=== PATIENT | male | born 1960 | race Caucasian/White ===

== ENCOUNTER → 2017-09-12 08:47 | Outpatient (CLI) | payer OTHER, SELFPAY ==
[2017-09-12 11:04] LABS: Anion Gap 5 (5-15); BUN 12 mg/dL (7-18); BUN/Creat Ratio 14.1 RATIO (10-20); Calcium,Total 8.4 mg/dL (8.5-10.1); Chloride 106 mmol/L (98-107); Cholesterol 121 mg/dL (200); Creatinine, Serum 0.85 mg/dL (0.70-1.30); EST Glomerular Filtration Rate 99 mL/min (>60); Est Glom Filt Rate - Afr Amer 120 mL/min (>60); Glucose 84 mg/dL (74-106); High Density Lipoprotein 33 mg/dL; Potassium 4.2 mmol/L (3.5-5.1); Sodium Level 138 mmol/L (136-145); Triglycerides 100 mg/dL; Very Low Density Lipoprotein 20 mg/dL (5-40)
== END ==
PROVIDERS: Family Provider Family Medicine; PCP Family Medicine; Visit Provider Family Medicine
DX: I10 Essential (primary) hypertension (principal)
CPT/HCPCS: 36415; 80048; 80061

== ENCOUNTER → 2018-03-13 08:37 | Outpatient (CLI) | payer OTHER, SELFPAY ==
[2017-05-09 14:49] VITALS: BMI 32.0
[2018-03-13 10:40] LABS: BUN 12 mg/dL (7-18); Glucose 87 mg/dL (74-106)
[2018-03-13 10:41] LABS: Anion Gap 6 (5-15); BUN/Creat Ratio 13.4 RATIO (10-20); Calcium,Total 8.9 mg/dL (8.5-10.1); Chloride 106 mmol/L (98-107); Cholesterol 146 mg/dL (200); EST Glomerular Filtration Rate 93 mL/min (>60); Est Glom Filt Rate - Afr Amer 113 mL/min (>60); High Density Lipoprotein 42 mg/dL; Potassium 4.3 mmol/L (3.5-5.1); Sodium Level 141 mmol/L (136-145); Triglycerides 51 mg/dL; Very Low Density Lipoprotein 10 mg/dL (5-40)
--- OUTSIDE RECORDS SUMMARY | 2018-05-08 08:18 | XMS RPT_ITS ---
:1960 Author Organization OHIP Care Team Providers Name Role Phone Mark Gardner Attending Unavailable Mark Stephens Referring Unavailable Odessa Ahumada Attending Unavailable Mark Gardner Attending Unavailable Mark Stephens Referring Unavailable Mark Stephens Attending Unavailable Mark Stephens Primary Care Unavailable Mark Stephens Attending Unavailable Mark Stephens Primary Care Unavailable PROBLEMS PROBLEMS DATE TYPE CONDITION / CODE ATTENDING STATUS SOURCE 03/13/2018 Unknown I10 - Essential Mark Stephens Active [place] (primary) Community hypertension / Hospital I10(ICD-10) Repository 05/15/2017 Unknown I49.1 - Atrial Mark Gardner Active [place] premature Replaced By [facility] depolarization / Hospital I49.1(ICD-10) Repository PROCEDURES PROCEDURES No Procedure Records FoundRESULTS RESULTS BASIC METABOLIC Collected: 03/13/2018 Status: F Source: NORMA PROFILE (BMP) 8:52 AM [facility] REPOSITORY TYPE CODE TESTS RESULT OUT OF RANGE REFERENCE UNITS LAB L501.0100 74-106 mg/dL Normal GLU 87 Result Comment: Please note revised GLUCOSE reference range effective 2017. LAB L501.1000 7-18 mg/dL Normal BUN 12 LAB L501.1100 0.70-1.30 mg/dL Normal CREAT,SERUM 0.90 Result Comment: The validity of the calculated GFR AND GFRAA in patients over 70 years has not been determined. Clinical correlation is essential. LAB L501.1110 >60 mL/min Normal EST GFR 93 Result Comment: Non- GFR Calc LAB L501.1115 >60 mL/min Normal EST GFR - AA 113 Result Comment: GFR Calc LAB L501.1300 10-20 RATIO Normal BUN/CRE 13.4 LAB L501.2200 8.5-10.1 mg/dL CA Normal 8.9 LAB L501.5300 136-145 mmol/L NA Normal 141 LAB L501.5600 3.5-5.1 mmol/L K Normal 4.3 LAB L501.5900 98-107 mmol/L CL Normal 106 LAB L501.6100 21.0-32.0 mmol/L Normal CO2 29.0 LAB L501.6200 5-15 Normal GAP 6 Performed By: #### L500.2500, L500.4100 #### [facility] [address] [place], [address] LIPID PROFILE Collected: 03/13/2018 Status: F Source: NORMA 8:52 AM [facility] REPOSITORY TYPE CODE TESTS RESULT OUT OF RANGE REFERENCE UNITS LAB L501.4900 200 mg/dL Normal CHOL 146 Result Comment: <200 mg/dL Desirable 200-240 mg/dL Borderline >240 mg/dL High Risk LAB L501.5000 mg/dL Normal TRIG 51 Result Comment: The drugs N-Acetylcysteine and Metamizole may falsely depress this assay. Serum Triglycerides Reference Interval Normal <150 mg/dL Borderline high 150 - 199 mg/dL High 200 - 499 mg/dL Very High > or = 500 mg/dL LAB L501.6400 mg/dL Normal HDL 42 Result Comment: The drugs N-Acetylcysteine and Metamizole may falsely depress this assay. Reference Range HDL <40 mg/dL Low HDL Cholesterol HDL >or= 60 mg/dL High HDL Cholesterol LAB L501.6500 0-130 mg/dL Normal LDL 94 LAB L501.6600 5-40 mg/dL Normal VLDL 10 Performed By: #### L500.2500, L500.4100 #### [facility] [address] [place], [place], [address] BASIC METABOLIC Collected: 09/12/2017 Status: F Source: ULM PROFILE (BMP) 8:51 AM [facility] REPOSITORY TYPE CODE TESTS RESULT OUT OF RANGE REFERENCE UNITS LAB L501.0100 74-106 mg/dL Normal GLU 84 Result Comment: Please note revised GLUCOSE reference range effective 2017. LAB L501.1000 7-18 mg/dL Normal BUN 12 LAB L501.1100 0.70-1.30 mg/dL Normal CREAT,SERUM 0.85 Result Comment: The validity of the calculated GFR AND GFRAA in patients over 70 years has not been determined. Clinical correlation is essential. LAB L501.1110 >60 mL/min Normal EST GFR 99 Result Comment: Non- GFR Calc LAB L501.1115 >60 mL/min Normal EST GFR - AA 120 Result Comment: GFR Calc LAB L501.1300 10-20 RATIO Normal BUN/CRE 14.1 LAB L501.2200 8.5-10.1 mg/dL Low CA 8.4 LAB L501.5300 136-145 mmol/L NA Normal 138 LAB L501.5600 3.5-5.1 mmol/L K Normal 4.2 LAB L501.5900 98-107 mmol/L CL Normal 106 LAB L501.6100 21.0-32.0 mmol/L Normal CO2 27.0 LAB L501.6200 5-15 Normal GAP 5 Performed By: #### L500.2500, L500.4100 #### [facility] [address] [place], [address] LIPID PROFILE Collected: 09/12/2017 Status: F Source: NORMA 8:51 AM [facility] REPOSITORY TYPE CODE TESTS RESULT OUT OF RANGE REFERENCE UNITS LAB L501.4900 200 mg/dL Normal CHOL 121 Result Comment: <200 mg/dL Desirable 200-240 mg/dL Borderline >240 mg/dL High Risk LAB L501.5000 mg/dL Normal TRIG 100 Result Comment: The drugs N-Acetylcysteine and Metamizole may falsely depress this assay. Serum Triglycerides Reference Interval Normal <150 mg/dL Borderline high 150 - 199 mg/dL High 200 - 499 mg/dL Very High > or = 500 mg/dL LAB L501.6400 mg/dL Low HDL 33 Result Comment: The drugs N-Acetylcysteine and Metamizole may falsely depress this assay. Reference Range HDL <40 mg/dL Low HDL Cholesterol HDL >or= 60 mg/dL High HDL Cholesterol LAB L501.6500 0-130 mg/dL Normal LDL 68 LAB L501.6600 5-40 mg/dL Normal VLDL 20 Performed By: #### L500.2500, L500.4100 #### [facility] [address] [place], [address] CARDIOLOGY VISIT Observed: 05/09/2017 Status: F Source: NORMA REPORT 5:19 PM [facility] REPOSITORY [facility] [address] [place] [address] OFFICE VISIT Date of Service: 05/09/17 MR#: [id number] Acct: [id number] Name: PRAVEEN LYONS Rep #: [id number] : 1960 Provider: Makr Gardner MD Age/Sex: 56/M Location: [facility] [place] Status: Signed HPI 6 M FU: Details: PRAVEEN LYONS, is a 56 M who presents to the office today for for outpatient cardiovascular follow-up of his history of hypertension and PACs. He states overall since his last visit he is doing well. He is not complaining of any symptoms of chest discomfort, difficulty breathing, near syncope or syncope. He has noted no palpitations. He brings with him his blood pressure recordings. For the most part his blood pressures appear to be under good control. He had a rare isolated mildly elevated systolic blood pressure of 1 44 mmHg. Intake Vital Signs05/09/17 Height 5 ft 10 in 05/09/17 Weight: 223 lb 7 oz 05/09/17 Body Mass Index (BMI) 32.0 05/09/17 Blood Pressure 128/74 Intake Visit Reasons: 6 M FU Allergies No Known Allergies Allergy (Verified 05/09/17 14:49) Medications Amlodipine Besylate [Norvasc] 2.5 mg PO DAILY 10/26/16 [History Confirmed 05/09/17] Aspirin [Aspir-Low] 81 mg PO DAILY 10/26/16 [History Confirmed 05/09/17] Lisinopril 20 mg PO BID 10/26/16 [History Confirmed 05/09/17] Multivitamin [Multiple Vitamins] 1 ea PO DAILY 10/26/16 [History Confirmed 05/09/17] [place]-3 Fatty Acids [Fish Oil] 360 mg PO DAILY 10/26/16 [History Confirmed 05/09/17] metoprolol tartrate 25 mg tablet 25 mg PO BID 05/06/17 [History Confirmed 05/09/17] Nurse's Note: Patient reports that he has been well. [facility] Medical History Hypertension (Chronic) Premature atrial contractions (Acute) Family history of hypertension (Acute) Nicotine dependence, chewing tobacco, uncomplicated (Acute) Family History Grandfather CAD (coronary artery disease) Hypertension Grandmother Diabetes Father Hypertension Social History alcohol intake: current details: occasioinal substance use type: does not use ROS Const Const: Negative for fatigue, weakness, weight gain, weight loss, frequent falls or excessive sweating Eyes Eyes: Negative for change in vision, blurry vision or transient loss of vision ENT ENT: Negative for dizziness, Negative for balance problems Cardio Chest Pain: No Palpitations: Positive for No Edema: None Muscle aches with walking: None Resp Respiratory: Negative for SOB with activity or SOB at rest GI GI: Negative vomiting or vomiting blood/hematemesis : Negative for hematuria Musc Musc: Negative for balance problems, muscle aches/ myalgia, muscle weakness or joint pain Skin Skin: Negative non-healing lesions or rash Neuro Neuro: Negative for weakness, Negative for blurry vision, Negative for dizziness, Negative for lightheadedness, Negative for frequent falls, Negative for orthostatic symptoms Demario Hematologic/Lymphatic: Negative for easy bleeding Endo Endo: Negative for fatigue or excessive sweating Psych Psych: Negative for anxiety or depression Allergy Allergy/Immunology: Negative for hives, Negative for rash Cardiology Exam Const Appearance: cooperative, healthy appearing, comfortable, no acute distress, well developed and well groomed Nutritional Appearance: average body habitus, well nourished and overweight Orientation: alert, awake and oriented x3 Head Head: normal to inspection, normocephalic and atraumatic Ears: hearing grossly normal bilaterally Nose: external nose normal Face and Sinus: face symmetric Mouth: oral mucosae normal Teeth and gingiva: dentition normal Eyes General: appearance normal, both eyes and all related structures Eyelids: eyelids normal Conjunctivae: conjunctivae normal Pupils: PERRL EOM: EOM intact bilaterally Neck Neck: normal visual inspection and full ROM Carotids: normal carotid upstroke Chest Chest inspection: normal inspection of the chest and symmetric chest movement Auscultation: Bilateral: Clear to Auscultation Cardio Palpation: normal PMI Rate: regular rate Rhythm: regular rhythm Heart sounds: S1 normal and S2 normal GI GI: normal to inspection, soft, no hepatosplenomegaly and bowel sounds present Neuro General: alert, awake and oriented x3 Skin Skin: no rashes or lesions noted Extremities Pulses: Normal: Right Femoral Pulse, Left Femoral Pulse, Right Radial Pulse, Left Radial Pulse Lower Extremity Edema: None: Bilateral Psych Psychological: normal affect Assessment AND Plan 1. Hypertension I10 Plan At the present time he appears to be doing well. He will continue his current medical management and follow-up. 2. Premature atrial beat I49.1 Plan He has had no acute symptoms of underlying ectopy or dysrhythmias. He will be reassessed as needed going forward. Plan Detail Additional Comments Otherwise she will be scheduled for an outpatient visit approximately 1 year unless needed sooner. Thank you for allowing me to participate in the care of your patient. Please don't hesitate to call if any issues arise. This note was generated using a voice recognition system and there may be incorrect words, spelling or punctuation that were not noted when reviewing the office note prior to saving. Follow Up 1 Year (PFM) Coding Level of Care Code Off vis,est,level 3 Diagnoses Hypertension I10 Premature atrial beat I49.1 05/09/17 1719 <Electronically signed by Mark Gardner MD> Date Mark Gardner MD Cosigner Signature: Date (if applicable) CC: Mark Stephens MD ALLERGIES ALLERGIES DATE TYPE / CODE NAME / CODE REACTION SEVERITY SOURCE 05/09/2017 Drug No Known Unknown [place] Replaced By [facility] Allergy/4160 Allergies/F00 Hospital 94752(SNOMED [id number](RXNOR Repository CT) M) ENCOUNTERS ENCOUNTERS ADMIT/DISCHARGE ACCOUNT ADMITTING ENCOUNTER LOCATION SOURCE NUMBER CLASS 03/13/2018 [id number] Ambulatory [place] Norma 0 [facility] ing:MFPLAB Repository 09/12/2017 [id number] Ambulatory [place] Norma 5 [facility] ing:MFPLAB Repository 05/09/2017/ [id number] Ambulatory BMSBuilding:B [place] 8 8 [facility] Repository 05/06/2017 [id number] Ambulatory BMSBuilding:B [place] 2 [facility] Repository 04/25/2017 [id number] Ambulatory BMSBuilding:B [place] 8 [facility] Repository PAYERS PAYERS ENCOUNTER GUARANTOR PAYER SUBSCRIBER SOURCE 03/13/2018 PRAVEEN Vera Primary PRAVEEN Waddell [id number] Insurance:AULTCAREPol NERISSAERB: [facility] Number: [id number] [id number] Repository [address]Qdv: 330 Date:[phone] (SS) [address], [place] [phone]: 03/13/2018 Secondary NOT GIVENUNK [place] Insurance:SELF PAY [facility] Number: Effective Repository Date:2018-03-13 09/12/2017 PRAVEEN Vera Primary PRAVEEN Waddell [id number] Insurance:AULTCAREPol SNYDERDOB: [facility] icy Number: [id number] [id number] Repository [address]Gzv: ([phone]) Date:0773-03-80PM [phone] (HP) [address] [place] [phone]: 09/12/2017 Secondary NOT GIVENUNK [place] Insurance:SELF PAY [facility] Number: Effective Repository Date:2017-09-12 05/09/2017 PRAVEEN Vera Primary PRAVEEN Waddell [id number] Insurance:AULTCAREPol SNYDERDOB: [facility] icy Number: [id number] [id number] Repository [address]Rhg: ([phone]) Date:8004-49-59OW [phone] () [address] [place] [phone]: 05/09/2017 Secondary NOT GIVENUNK [place] Insurance:SELF PAY [facility] Number: Effective Repository Date:2017-04-22 05/06/2017 Praveen Vera Primary Praveen Waddell [id number] Insurance:AULTCAREPol SnyderDOB: [facility] icy Number: [id number] [id number] Repository [address]Hyj: Date:0301-55-01ED [phone]~[address] [place] [address] 6 (HP) [phone]: 05/06/2017 Secondary NOT GIVENUNK Norma Insurance:SELF PAY [facility] Number: Effective Repository Date:2017-05-06 04/25/2017 Praveen Vera Primary Praveen Waddell [id number] Insurance:AULTCAREPol SnyderDOB: [facility] icy Number: [id number] [id number] Repository [address]Cao: Date:0988-36-38UO [phone] [address], [place] 6 (SN) [phone]: 04/25/2017 Secondary NOT GIVENUNK [place] Insurance:SELF PAY [facility]: Effective Repository Date:2017-03-23
== END ==
PROVIDERS: Family Provider Family Medicine; PCP Family Medicine; Visit Provider Family Medicine
DX: I10 Essential (primary) hypertension (principal)
CPT/HCPCS: 36415; 80048; 80061

== ENCOUNTER → 2018-09-11 | Outpatient (CLI) | payer OTHER, SELFPAY ==
[2018-05-15 14:55] VITALS: BMI 31.5
[2018-09-11 10:46] LABS: Anion Gap 4 (5-15); BUN 10 mg/dL (7-18); BUN/Creat Ratio 10.8 RATIO (10-20); Calcium,Total 8.6 mg/dL (8.5-10.1); Chloride 106 mmol/L (98-107); Creatinine, Serum 0.93 mg/dL (0.70-1.30); EST Glomerular Filtration Rate 89 mL/min (>60); Est Glom Filt Rate - Afr Amer 108 mL/min (>60); Glucose 87 mg/dL (74-106); Potassium 4.5 mmol/L (3.5-5.1); Sodium Level 138 mmol/L (136-145)
== END | disposition home or self-care (01) ==
LOC: MFPLAB 08:37
PROVIDERS: Family Provider Family Medicine; PCP Family Medicine; Referring Provider Family Medicine; Visit Provider Family Medicine
DX: I10 Essential (primary) hypertension (principal); R53.83 Other fatigue
CPT/HCPCS: 36415; 80048; 84403

== ENCOUNTER → 2019-09-03 14:59 | Outpatient (CLI) | payer OTHER, SELFPAY ==
[2019-05-14 10:09] VITALS: BMI 31.8
[2019-09-03 17:48] LABS: Anion Gap 3 (5-15); BUN 10 mg/dL (7-18); BUN/Creat Ratio 11.1 RATIO (10-20); Calcium,Total 8.7 mg/dL (8.5-10.1); Chloride 100 mmol/L (98-107); Cholesterol 138 mg/dL (200); EST Glomerular Filtration Rate 92 mL/min (>60); Est Glom Filt Rate - Afr Amer 112 mL/min (>60); Glucose 77 mg/dL (74-106); High Density Lipoprotein 41 mg/dL; PSA,Total - Annual Screen 0.58 ng/mL (0.00-4.00); Potassium 3.8 mmol/L (3.5-5.1); Sodium Level 133 mmol/L (136-145); Triglycerides 74 mg/dL; Very Low Density Lipoprotein 15 mg/dL (5-40)
== END ==
PROVIDERS: PCP Family Medicine; Referring Provider Family Medicine; Visit Provider Family Medicine
DX: Z00.00 Encounter for general adult medical examination without abnormal findings (principal); I10 Essential (primary) hypertension
CPT/HCPCS: 36415; 80048; 80061; 84153; 84403; G0103

== ENCOUNTER → 2022-01-31 | Outpatient (CLI) | payer OTHER, SELFPAY ==
--- NOTE | 2022-01-31 09:01 | RAD_ITS ---
STUDY: X-RAY - LEFT KNEE REASON FOR EXAM: Male, 61 years old. PAIN TECHNIQUE: 3 view(s) of the knee. COMPARISON: None. FINDINGS: Normal visualized distal femur. Normal visualized proximal tibia and fibula. Normal proximal tibiofibular articulation. There is mild degenerative arthrosis of the medial femorotibial compartment. Normal lateral femorotibial compartment. There is mild degenerative arthrosis of the patellofemoral articulation. The soft tissue structures are unremarkable. RAD/Knee 3 Views IMPRESSION: Degenerative arthrosis. Electronically Signed: Fabricio Rodriguez MD at 9:45 EDT ,
[2022-01-31 11:10] LABS: Anion Gap 4 (5-15); BUN 14 mg/dL (7-18); BUN/Creat Ratio 14.3 RATIO (10-20); Calcium,Total 9.2 mg/dL (8.5-10.1); Chloride 107 mmol/L (98-107); Cholesterol 147 mg/dL (200); Creatinine, Serum 0.98 mg/dL (0.70-1.30); EST Glomerular Filtration Rate 83 mL/min (>60); Est Glom Filt Rate - Afr Amer 100 mL/min (>60); Glucose 89 mg/dL (74-106); High Density Lipoprotein 45 mg/dL; PSA,Total - Annual Screen 0.77 ng/mL (0.00-4.00); Potassium 4.3 mmol/L (3.5-5.1); Sodium Level 140 mmol/L (136-145); Thyroid Stim Hormone (TSH) 0.55 uIU/mL (0.358-3.74); Triglycerides 41 mg/dL; Very Low Density Lipoprotein 8 mg/dL (5-40)
== END | disposition home or self-care (01) ==
PROVIDERS: PCP Family Medicine; Referring Provider Family Medicine; Visit Provider Family Medicine
DX: Z00.00 Encounter for general adult medical examination without abnormal findings (principal); M25.562 Pain in left knee
CPT/HCPCS: 36415; 73562; 80048; 80061; 82306; 84153; 84443; G0103

== ENCOUNTER → 2022-05-24 | Outpatient (CLI) | payer OTHER, SELFPAY | END | disposition home or self-care (01) | LOC: SL 12:18 | PROVIDERS: PCP Family Medicine; Referring Provider Nurse Practitioner Acute Care; Visit Provider Nurse Practitioner Acute Care | DX: G47.10 Hypersomnia, unspecified (principal) | CPT/HCPCS: 95806 ==

== ENCOUNTER → 2022-07-12 | Outpatient (CLI) | payer OTHER, SELFPAY | END | disposition home or self-care (01) | LOC: SL 12:13 | PROVIDERS: PCP Family Medicine; Visit Provider Nurse Practitioner Acute Care | DX: Z00.00 Encounter for general adult medical examination without abnormal findings (principal) ==

== ENCOUNTER → 2024-01-23 | Outpatient (CLI) | payer OTHER, SELFPAY ==
[2024-01-23 12:48] LABS: Absolute Lymphocyte Count 1.26 X10^3/uL (0.83-4.51); Absolute Neutrophil Count 3.4 X10^3/uL (2.0-7.7); Basophil# 0.05 X10^3/uL; Basophil% 0.9 % (0-1); Eosinophil# 0.24 X10^3/uL; Eosinophils% 4.3 % (0-5); Hematocrit 41.3 % (40-54); Hemoglobin 13.7 g/dL (13.0-16.5); Lymphocyte # 1.26 X10^3/ul (0.83-4.51); Lymphocyte % 22.7 % (19-41); Mean Corp Hgb Conc 33.2 g/dL (32-36); Mean Corpuscular Volume 93.4 fL (80-94); Mean Platelet Vol. 10.8 fl (6.2-12.0); Monocyte# 0.56 X10^3/uL; Monocyte% 10.1 % (0-10); NRBC Flagged by Analyzer 0 % (0-5); Neutrophil # 3.42 X10^3/uL (2.7-7.7); Neutrophil % 61.8 % (47-70); Platelet Count 244 K/mm3 (150-450); RBC Distribution Width CV 12.8 % (11.6-14.6); RBC Distribution Width SD 43.9 fl (35.1-43.9); Red Blood Count 4.42 M/mm3 (4.6-6.2); White Blood Count 5.5 K/mm3 (4.4-11.0)
[2024-01-23 13:23] LABS: ALB/GLOB Ratio 1.1 RATIO (0.9-2.4); AST(SGOT) 17 U/L (15-37); Alanine Aminotransfer ALT/SGPT 25 U/L (16-61); Albumin, Serum 3.5 g/dL (3.2-5.0); Alkaline Phosphatase 87 U/L (45-117); Anion Gap 3 (5-15); BUN 13 mg/dL (7-18); BUN/Creat Ratio 14.1 RATIO (10-20); Chloride 107 mmol/L (98-107); Cholesterol 148 mg/dL (200); Creatinine, Serum 0.92 mg/dL (0.70-1.30); EST Glomerular Filtration Rate 88 mL/min (>60); Est Glom Filt Rate - Afr Amer 107 mL/min (>60); Globulin 3.3 g/dL (2.2-4.2); Glucose 85 mg/dL (74-106); High Density Lipoprotein 41 mg/dL; PSA,Total - Annual Screen 0.76 ng/mL (0.00-4.00); Potassium 4.4 mmol/L (3.5-5.1); Protein, Total 6.8 g/dL (6.4-8.2); Sodium Level 138 mmol/L (136-145); Thyroid Stim Hormone (TSH) 0.471 uIU/mL (0.358-3.740); Triglycerides 62 mg/dL; Very Low Density Lipoprotein 12 mg/dL (5-40)
[2024-01-23 13:33] LABS: Microalbumin,Random Urine 6.8 mg/L (NO RANGE EST.)
[2024-01-23 13:35] LABS: Hemoglobin A1c 5.2 % (3.8-5.6)
== END | disposition home or self-care (01) ==
LOC: VSLAB 08:46
PROVIDERS: PCP Family Medicine
DX: I10 Essential (primary) hypertension (principal); Z13.228 Encounter for screening for other metabolic disorders; Z13.6 Encounter for screening for cardiovascular disorders; Z12.5 Encounter for screening for malignant neoplasm of prostate
CPT/HCPCS: 36415; 80053; 80061; 82043; 83036; 84153; 84443; 85025; G0103

== ENCOUNTER → 2024-02-27 | Outpatient (CLI) | payer OTHER, SELFPAY ==
[2024-02-27 10:39] LABS: Thyroid Stim Hormone (TSH) 0.503 uIU/mL (0.358-3.740)
== END | disposition home or self-care (01) ==
LOC: LAB 09:45
PROVIDERS: PCP Family Medicine; Referring Provider Internal Medicine Cardiovascular Disease; Visit Provider Internal Medicine Cardiovascular Disease
DX: R00.1 Bradycardia, unspecified (principal); I10 Essential (primary) hypertension; M79.89 Other specified soft tissue disorders
CPT/HCPCS: 36415; 84443

== ENCOUNTER → 2024-04-09 | Outpatient (CLI) | payer OTHER, SELFPAY ==
[2024-04-09 16:28] LABS: Anion Gap 5 (5-15); BUN 25 mg/dL (7-18); BUN/Creat Ratio 24.8 RATIO (10-20); Calcium,Total 9.1 mg/dL (8.5-10.1); Chloride 104 mmol/L (98-107); Creatinine, Serum 1.01 mg/dL (0.70-1.30); EST Glomerular Filtration Rate 79 mL/min (>60); Est Glom Filt Rate - Afr Amer 96 mL/min (>60); Glucose 101 mg/dL (74-106); Potassium 4.1 mmol/L (3.5-5.1); Sodium Level 137 mmol/L (136-145)
== END | disposition home or self-care (01) ==
LOC: LAB 14:42
PROVIDERS: PCP Family Medicine; Referring Provider Internal Medicine Cardiovascular Disease; Visit Provider Internal Medicine Cardiovascular Disease
DX: I10 Essential (primary) hypertension (principal); R00.1 Bradycardia, unspecified
CPT/HCPCS: 36415; 80048

== ENCOUNTER → 2024-10-30 | Outpatient (CLI) | payer OTHER, SELFPAY ==
--- OUTSIDE RECORDS SUMMARY | 2024-10-30 09:22 | XMS RPT_ITS | CCD ---
Author Organization [facility] Care Team Providers Care Logistics Supervisor Name Role Phone Maty Campbell Unavailable Unavailable Maty Campbell Unavailable Unavailable Ronnie Castillo Unavailable Unavailable Anatoly UNDERWOOD, Roman Hammond Unavailable Megan Cox Unavailable Unavailable Dr. Mark Stephens Primary Care Provider [phone] Dr. Mark Stephens Referring Provider Vikas STOGY MAKER, STOGY MAKER-C Yuki Attending Provider Dr. Mark Stephens Primary Care Provider Dr. Mark Stephens Referring Provider Vikas STOGY MAKER, STOGY MAKER-C Yuki Attending Provider Eddie Sanchez DO Primary Care Provider Eddie Sanchez DO Primary Care Provider EDDIE SANCHEZ Primary Care UnavailJOE Faustin Referring Unavailable JOE PEREZ Attending Unavailable EDDIE SANCHEZ Primary Care Unavailabl e MINO GARCIA Referring Unavailable JOE PEREZ Attending Unavailable GOVIND KWON Attending Unavailable Mark Stephens Primary Care Unavailable Arnaud, Brady Attending Unavailable Mark Stephens Referring Unavailable Laura [facility], Barbra Primary Care Unavailable Arnaud, Brady Referring Unavailable Laura VS, Barbra Primary Care Unavailable Arnaud, Brady Attending Unavailable Arnaud, Brady Attending Unavailable Arnaud, Brady Referring Unavailable Laura [facility], Barbra Primary Care Unavailable Arnaud, Brady Attending Unavailable Laura [facility], Barbra Primary Care Unavailable Barbra Martin Referring Unavailable Medications Current Medications Medication Drug Class(es) Dates Sig (Normalized) Sig (Original) amLODIPine 2.5 mg oral tablet (20 sources) Dihydropyridine Calcium Channel Jyotsna Start: 01-12-2024 take 1 tablet by mouth once amLODIPine (NORVASC) 2.5 mg tablet Take 1 tablet by mouth every afternoon. 01/12/2024 Active Start: 10-26-2016 End: 08-15-2021 take 2.5 mg by mouth once daily Amlodipine Discontinue d 2.5 MG PO DAILY 90 August 16, 2020 12:15pm August 15, 2021 8:44am Start: 09-20-2016 take 1 tablet by catherine th once daily NORVASC 2.5 MG TABS One tablet by mouth daily AMLODIPINE BESYLATE [id number] JHONY SnyderC aspirin 81 mg delayed release oral tablet (13 sources) Nonsteroidal Anti-inflammatory Drug Start: 10-26-2016 take 81 mg by mouth once daily Aspirin Active 81 MG PO DAILY October 26, 2016 12:00am Start: 06-23-2015 take 1 tablet by catherine th once daily ASPIRIN EC 81 MG TBEC One tablet by mouth daily ASPIRIN [id number] Odessa Ahumada RN Start: 06-23-2015 take 1 tablet by catherine th once daily ASPIR-81 81 MG TBEC One tablet by mouth daily ASPIRIN [id number] Mark Gardner MD ibuprofen 200 mg oral tablet (2 sources) Nonsteroidal Anti-inflammatory Drug Start: 05-03-2022 take 1 tablet by mouth every six hours Ibuprofen (Advil) 200 mg tablet Active 200 MG PO EVERY 6 HOURS May 03, 2022 1:00am lisinopril 20 mg oral tablet (20 sources) Angiotensin Converting Enzyme Inhibitor Start: 10-24-2023 take 1 tablet by mouth once daily lisinopril (ZESTRIL) 20 mg tablet Take 20 mg by mouth once daily. 10/24/2023 Active Start: 10-26-2016 End: 08-29-2021 take 20 mg by mouth twice daily Lisinopril Discontinue d 20 MG PO TWICE A DAY 180 October 12, 2020 8:55am August 29, 2021 2:08pm Start: 06-20-2015 take 1 tablet by catherine th once daily LISINOPRIL 10 MG TABS One tablet by mouth daily LISINOPRIL [id number] Mariza Durham RN Start: 06-20-2015 take 1 tablet by catherine th twice daily LISINOPRIL 10 MG TABS One tablet by mouth twice daily LISINOPRIL [id number] Beti Kenyon RN Start: 06-20-2015 take 1 tablet by catherine th twice daily LISINOPRIL 20 MG TABS One tablet by mouth twice daily LISINOPRIL [id number] Odessa Bragg PA-C metoprolol tartrate 50 mg oral tablet (20 sources) beta-Adrenergic Jyotsna Start: 10-24-2023 take 1 tablet by mouth twice daily metoprolol tartrate, short acting, (LOPRESSOR) 50 mg tablet Take 50 mg by mouth two times a day. 10/24/2023 Active Start: 05-15-2018 take 50 mg by mouth twice arsalan y Metoprolol Tartrate Active 50 MG PO TWICE A DAY May 15, 2018 1:00am Start: 05-06-2017 End: 05-15-2018 take 25 mg by mouth twice daily Metoprolol Tartrate Di scontinued 25 MG PO TWICE A DAY May 06, 2017 1:00am May 15, 2018 3:56pm Start: 10-26-2016 End: 05-06-2017 take 50 mg by mouth twice daily Metoprolol Tartrate Di scontinued 50 MG PO TWICE A DAY October 26, 2016 12:00am May 06, 2017 9:20am Start: 03-21-2016 take 1 tablet by catherine th twice daily METOPROLOL TARTRATE 25 MG TABS 1 tablet by mouth twice daily METOPROLOL TARTRATE [id number] Odessa Bragg PA-C Start: 03-21-2016 take 0.5 tablet by m out twice daily METOPROLOL TARTRATE 25 MG TABS 1/2 tablet by mouth twice daily METOPROLOL TARTRATE [id number] Mark Gardner MD Multivitamin preparation (3 sources) Start: 10-26-2016 Multivitamin A ctive 1 EACH PO DAILY October 25, 2016 11:00pm Start: 10-26-2016 Multivitamin A ctive 1 EACH PO DAILY October 26, 2016 12:00am [place] 4-Gby-Ffy-Fish Oil (3 sources) Start: 10-26-2016 take 360 mg by mouth once daily [place] 2-Kbj-Vpz-Fish Oil Active 360 MG PO DAILY October 25, 2016 11:00pm Start: 10-26-2016 take 360 mg by mouth once daily [place] 6-Zqt-Rmm-Fish Oil Active 360 MG PO DAILY October 26, 2016 12:00am phenylephrine hydrochloride 25 mg/ml ophthalmic solution (1 source) alpha-1 Adrenergic Agonist Start: 01-29-2024 End: 01-29-2024 PHENYLephrine 2.5 % 1 Drop (AK-DILATE, ARLETTE-SYNEPHRINE) proparacaine hydrochloride 5 mg/ml ophthalmic solution (1 source) Local Anesthetic Start: 01-29-2024 End: 01-29-2024 proparacaine 0.5 % 1 Drop (ALCAINE) tropicamide 10 mg/ml ophthalmic solution (1 source) Anticholinergic Start: 01-29-2024 End: 01-29-2024 tropicamide 1 % 1 Drop (MYDRIACYL) Completed/Discontinued Medications Medication Drug Class(es) Dates Sig (Normalized) Sig (Original) fish oil (5 sources) Start: 6 take 1 tablet by mouth once daily FISH OIL CAPS One tablet by mouth daily OMEGA-3 FATTY ACIDS CAPS [id number] Mark Gardner MD hydroCHLOROthiazide 25 mg oral tablet (14 sources) Thiazide Diuretic Start: 6 End: 7 take 1 tablet by mouth once daily HYDROCHLOROTHIAZIDE 25 MG TABS One tablet by mouth daily HYDROCHLOROTHIAZIDE [id number] Odessa Bragg PA-C Start: 06-20-2015 take 1 tablet by catherine th once daily HYDROCHLOROTHIAZIDE 12.5 MG TABS One tablet by mouth daily HYDROCHLOROTHIAZIDE [id number] Mariza Durham RN MULTIPLE VITAMIN (5 sources) Start: 06-20-2015 take 1 tablet by mouth once daily MULTIVITAMINS TABS One tablet by mouth daily MULTIPLE VITAMIN Mariza Durham RN oxybutynin chloride 5 mg oral tablet (7 sources) Cholinergic Muscarinic Antagonist Start: 05-06-2017 End: 05-09-2017 take 5 mg by mouth twice daily Oxybutynin Chloride Discontinued 5 MG PO TWICE A DAY May 06, 2017 1:00am May 09, 2017 3:50pm Start: 09-20-2016 take 1 tablet by catherine twice daily OXYBUTYNIN CHLORIDE 5 MG TABS 1 tab po twice daily OXYBUTYNIN CHLORIDE [id number] Odessa Bragg PA-C Problems Active Problems Problem Classification Problem Date Documented Da te Episodic/Chronic Blindness and vision defects (3 sources) Bilateral regular astigmatism; Translations: [Regular astigmatism, bilateral] 01-29-2024 Episodic Cardiac dysrhythmias (9 sources) Premature atrial contraction; Translations: [Atrial premature depolarization] Onset: 06-23-2015 06-23-2015 Chronic Cardiac dysrhythmias (3 sources) Bradycardia; Translations: [Bradycardia, unspecified] Onset: 03-23-2024 01-29-2024 Episodic Cataract (4 sources) Senile combined form cataract of left eye; Translations: [Combined forms of age-related cataract, left eye] 01-29-2024 Chronic Essential hypertension (11 sources) Hypertensive disorder; Translations: [Essential hypertension] Onset: 06-20-2015 06-20-2015 Chronic Other nutritional; endocrine; and metabolic disorders (9 sources) Body mass index (BMI) 32.0-32.9, adult; Translations: [Body mass index (BMI) 31.0-31.9, adult] Onset: 06-23-2015 07-28-2015 Chronic Other nutritional; endocrine; and metabolic disorders (1 source) Body mass index (BMI) 31.0-31.9, adult; Translations: [Body mass index (BMI) 31.0-31.9, adult] Onset: 06-23-2015 06-23-2015 Chronic Other nutritional; endocrine; and metabolic disorders (1 source) Body mass index 30+ - obesity; Translations: [Body mass index (BMI) 33.0-33.9, adult] 06-14-2022 Chronic Other nutritional; endocrine; and metabolic disorders (1 source) Body mass index (BMI) 33.0-33.9, adult; Translations: [Body Mass Index 33.0-33.9, adult] 06-14-2022 Chronic Other screening for suspected conditions (not mental disorders or infectious disease) (3 sources) Patient encounter status; Translations: [Encounter for screening for malignant neoplasm of colon] 2016 Episodic Residual codes; unclassified (2 sources) Daytime hypersomnia; Translations: [Hypersomnia, unspecified] 05-03-2022 Chronic Residual codes; unclassified (2 sources) Hypersomnia, unspecified; Translations: [Hypersomnia, unspecified] 05-03-2022 Chronic Residual codes; unclassified (1 source) Obstructive sleep apnea syndrome; Translations: [Obstructive sleep apnea (adult) (pediatric)] 06-14-2022 Chronic Residual codes; unclassified (2 sources) Obstructive sleep apnea (adult) (pediatric); Translations: [Obstructive sleep apnea (adult)(pediatric)] Onset: 02-27-2024 06-14-2022 Chronic Retinal detachments; defects; vascular occlusion; and retinopathy (2 sources) Epiretinal membrane of right eye; Translations: [Puckering of macula, right eye] 01-29-2024 Chronic Screening or history of mental health and substance abuse (5 sources) Nicotine dependence, chewing tobacco, uncomplicated; Translations: [Nicotine dependence, chewing tobacco, uncomplicated] Onset: 06-20-2015 06-20-2015 Chronic Unclassified (1 source) Screening for malignant neoplasm of colon ; Translations: [Encounter for screening for malignant neoplasm of colon] Onset: 09-27-2016 09-27-2016 Viral infection (3 sources) Disease caused by 2019-nCoV; Translations: [COVID-19] 04-11-2021 Episodic Past or Other Problems Problem Classification Problem Date Documented Da te Episodic/Chronic Unclassified (5 sources) FH: Hypertension; Translations: [Family history of ischemic heart disease and other diseases of the circulatory system] 06-20-2015 Episodic Results Test Name Value Interpretation Reference Range Facility Basic Metabolic Profile (BMP )on 04-09-2024 BUN/CRE 24.8 RATIO High 10-20 [facility] Comment on above: Performed By: #### L 500.2500 #### [facility] [address] [place], [address] CA,Total 9.1 mg/dL Normal 8.5-10.1 [facility] Comment on above: Performed By: #### L 500.2500 #### [facility] [address] [place], [address] Chloride [Moles/Vol] 104 mmol/L Normal 98-107 [facility] Comment on above: Performed By: #### L 500.2500 #### [facility] [address] [place], [address] CO2 [Moles/Vol] 29.0 mmol/L Normal 21.0-32.0 [facility] Comment on above: Performed By: #### L 500.2500 #### [facility] [address] [place], [address] Creatinine [Mass/Vol] 1.01 mg/dL Normal 0.70-1.30 [facility] Comment on above: Result Comment: The validity of the calculated GFR GFRAA in patients over 70 years has not been determined. Clinical correlation is essential. Performed By: #### L 500.2500 #### [facility] [address] [place], [address] EST GFR - AA 96 mL/min Normal >60 [facility] Comment on above: Result Comment: Afri can Grenadian GFR Calc Performed By: #### L 500.2500 #### [facility] [address] [place], [address] GAP 5 Normal 5-15 [facility] Comment on above: Performed By: #### L 500.2500 #### [facility] [address] [place], [address] GFR/1.73 sq M.predicted among non-blacks MDRD (S/P/Bld) [Vol rate/Area] 79 mL/min/{1.73_m2} Normal >60 [facility] Comment on above: Result Comment: Non- GFR Calc Performed By: #### L 500.2500 #### [facility] [address] [place], [address] Glucose [Mass/Vol] 101 mg/dL Normal 74-106 [facility] Comment on above: Result Comment: Fast ing Glucose result from 100 to 125 mg/dL suggests IMPAIRED HOMEOSTASIS per A.D.A. criteria. Performed By: #### L 500.2500 #### [facility] [address] [place], [address] Potassium [Moles/Vol] 4.1 mmol/L Normal 3.5-5.1 [facility] Comment on above: Performed By: #### L 500.2500 #### [facility] [address] [place], [address] Sodium [Moles/Vol] 137 mmol/L Normal 136-145 [facility] Comment on above: Performed By: #### L 500.2500 #### [facility] [address] [place], [address] Urea nitrogen [Mass/Vol] 25 mg/dL High 7-18 [facility] Comment on above: Performed By: #### L 500.2500 #### [facility] [address] [place], [address] CORNEAL TOPOGRAPHY ATLAS OU (BOTH EYES)on 03-25-[address] [facility] Radiology Study observation (narrative) [facility] IOL BIOMETRY W/ IOL CALC OU (BOTH EYES)on 03-25-[address] [facility] Radiology Study observation (narrative) [facility] Office Visit Reporton 2023 Office Visit Report [facility] [address] [place] [address] OFFICE VISIT Date of Service: 03/19/24 MR#: [id number] Acct: [id number] Patient: PRAVEEN LYONS Rep #: [id number] : 1960 Provider: Dr. Brady Lares MD Age/Sex: 63/M Location[place] [facility] Status: Signed Intake Vital Signs 11/14/24 08:04 03/19/24 13:15 Height 5 ft 10 in Weight: 236 lb BMI 33.8 BP 132/78 H 141/80 H Blood Pressure Location Lt brachial Lt brachial Position Sitting Sitting Respiration 16 16 Pulse 46 L 62 Pulse Source NIBP Monitor Intake Visit Reasons: 2 WK BP + HR Check Allergies No Known Allergies Allergy (Verified 02/27/24 09:00) Nursing Note Patient in office for a BP/HR check after medication changes at last OV. Results of BP/HR check reviewed with Dr. Lares and patient instructed to start HCTZ 12.5mg daily and have BMP drawn in one week. Patient verbalizes understanding. Assessment and Plan Assessment and Plan Orders: Orders Basic Metabolic Profile (BMP) 04/09/24 I10 - Essential (primary) hypertension, R00.1 - Bradycardia, unspecified Medications: New hydrochlorothiazide 12.5 mg PO QAM 90 tabs 3RF 05/14/24 1127 Date Brady Lares MD Cosign Signature: Date (if applicable) CC: Normal [facility] 12 Lead EKG performed by [facility] on 02-27-2024 12 Lead EKG performed by [facility] [address] [place] [address] 12 Lead EKG performed by [facility] 02/27/24 0809 MR#: [id number] Acct: [id number] Name: PRAVEEN LYONS Rep #: [id number] : 1960 63 From: Brady Lares MD Attending Dr: Dr. Brady Lares MD Status: DEP AMB Ordering Dr: Brady Lares MD Date: 02/27/24 Location: [facility] Sex: M C Admitted: [facility]/12 Lead EKG performed by [facility] ECG Report Interpretation ---Marked sinus Bradycardia BORDERLINE RHYTHMElectronically signed on 05/11/2024 at 11:[address] Brady Lares [employer] Version [id number] 05/11/24 1115 Date Brady Lares MD CC: Barbra Sanchez DO Date Dictated: 02/27/24808 Date Transcribed: 02/27/24808 Tire Shop Mechanic: JESSICA Signed Normal [facility] Cardiology Visit Reporton Cardiology Visit Report [facility] [address] [place] [address] OFFICE VISIT Date of Service: 02/27/24 MR#: [id number] Acct: [id number] Name: PRAVEEN LYONS Rep #: [id number] : 1960 Provider: Dr. Brady Lares MD Age/Sex: 63/M Location: [facility] Status: Signed HPI HPI History of Present Illness Details: This gentleman has history of frequent PACs and hypertension. 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 He was noted to have low heart rate. Subsequently he is presenting to us for evaluation. Patient has been on metoprolol 50 mg twice daily. He denies any lightheadedness or dizziness. No fatigue or tiredness. No syncope or presyncope. Denies any chest pains or shortness of breath either at rest or with exertion. He is physically active and can climb 2 flights of stairs without any problems. He denies any palpitations. 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: No Accompanied by: Self Is patient in pain?: Yes (bilateral knees; chronic; unchanged) Allergies No Known Allergies Allergy (Verified 02/27/24 09:00) Medications ???Medication ???Instructions ???Recorded ???Confirmed ???Type multivitamin 1 ea PO DAILY 10/26/16 02/27/24 History omega 3-dha 60 mg-epa 90 mg-fish 360 mg PO DAILY 10/26/16 02/27/24 History oil 500 mg capsule, delayed release metoprolol tartrate 50 mg tablet 50 mg PO BID 05/15/18 02/27/24 History lisinopril 20 mg tablet 20 mg PO BID #180 tabs 08/29/21 02/27/24 Rx ibuprofen 200 mg tablet (Advil) 200 mg PO Q6H PRN 05/03/22 02/27/24 History amlodipine 2.5 mg tablet 2.5 mg PO DAILY #90 tabs 09/03/23 02/27/24 Rx ascorbic acid (vitamin C) 500 mg 500 mg PO QDAY 02/26/24 02/27/24 History tablet aspirin 81 mg tablet,delayed 81 mg PO QDAY 02/26/24 02/27/24 History release (Adult Aspirin Regimen) propylene glycol 0.6 % eye drops 1 drp ophthalmic (eye) TID PRN 02/26/24 02/27/24 History (Systane Complete) Ejection fraction %: 55 Have you fallen in the past year?: No PFSH Medical History Bilateral primary osteoarthritis of knee Combined forms of age-related cataract of both eyes Essential hypertension Family history of hypertension Nicotine dependence, chewing tobacco, uncomplicated Premature atrial contractions Regular astigmatism of both eyes Symptom of leg swelling Family History Grandfather CAD (coronary artery disease) Hypertension Grandmother Diabetes Father Hypertension Social History Smoking Status: Current every day smoker Smokeless tobacco user: chewing tobacco alcohol intake: current details: occasioinal substance use type: does not use caffeine: Yes ROS Const Const: Negative for fatigue, weakness, headache(s) or weight gain ENT ENT: Negative for headache(s), dizziness, Nosebleed/epistaxis or balance problems Cardio Chest Pain: No Palpitations: No Edema: 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 (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 driving 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) Muscle aches with walking: None Resp Respiratory: Negative for SOB with activity, SOB at rest or SOB orthopnea SOB lying down GI GI: Negative nausea, vomiting or heartburn Musc Musc: Positive for joint pain (bilateral knees; chronic; unchanged; primary following); Negative for muscle aches/ myalgia, muscle weakness or balance problems Neuro Neuro: Negative for dizziness, lightheadedness, near syncope, syncope, headache(s) or weakness Endo Endo: Negative for fatigue Cardiology Exam Const Appearance: comfortable and no acute distress Nutritional Appearance: well nourished Neck Neck: no JVD Carotids: Negative bruit Chest Auscultation: Bilateral: Clear to Auscultation Cardio Rate: regular rate Rhythm: regular rhythm Heart sounds: S1 normal and S2 normal Neuro General: patient alert, patient awake and patient oriented x3 Extremities Lower Extremity Edema: None: Bilateral Supplemental Info Supplemental Information Echocardiogram 07/14/2015: Interpretation Summary: The study was technically difficult. Left Ventricular systolic function is normal. The estimated ejection fraction is 55% The left atrium is mildly enlarged Trivial mitral valve insufficiency. Trivial tricuspid valve insufficiency Mild focal aortic valve thickening 24-Hour Holter Monitor Summary 07/13/2015: Interpretation: This is a 24-hour Holter monitor in Normal Sinus Rhythm with periods of Sin (more content not included)... Normal [facility] Thyroid Stim Hormone (TSH)on 02-27-2024 TSH 0.503 uIU/mL Normal 0.358-3.740 [facility] Comment on above: Performed By: #### L 501.1235 #### [facility] [address] [place], [place], [id number] CORNEAL TOPOGRAPHY ATLAS OU (BOTH EYES)on 01-29-[address] [facility] Radiology Study observation (narrative) [facility] CORNEAL TOPOGRAPHY PENTACAM OU (BOTH EYES)on 01-29-[address] [facility] Radiology Study observation (narrative) [facility] IOL BIOMETRY W/ IOL CALC OU (BOTH EYES)on 01-29-[address] [facility] Radiology Study observation (narrative) [facility] OCT MACULA CIRRUS OU (BOTH E YES)on 01-29-[address] [facility] Radiology Study observation (narrative) [facility] CBC W/Diff, Automatedon 10-4 Absolute Lymph 1.26 X10 3/uL Normal 0.83-4.51 [facility] Comment on above: Performed By: #### L 501.9520, L500.4100, L500.4050, L501.9910, L502.0500, L100.0100, L501.9985 #### [facility] [address] [place], [address] Absolute Neut 3.4 X10 3/uL Normal 2.0-7.7 [facility] Comment on above: Performed By: #### L 501.9520, L500.4100, L500.4050, L501.9910, L502.0500, L100.0100, L501.9985 #### [facility] [address] [place], [address] Basophils/100 WBC (Bld) 0.9 % Normal 0-1 [facility] Comment on above: Performed By: #### L 501.9520, L500.4100, L500.4050, L501.9910, L502.0500, L100.0100, L501.9985 #### [facility] [address] [place], [address] Eosinophils/100 WBC (Bld) 4.3 % Normal 0-5 [facility] Comment on above: Performed By: #### L 501.9520, L500.4100, L500.4050, L501.9910, L502.0500, L100.0100, L501.9985 #### [facility] [address] [place], [address] Erythrocyte distribution width (RBC) [Ratio] 12.8 % Normal 11.6-14.6 [facility] Comment on above: Performed By: #### L 501.9520, L500.4100, L500.4050, L501.9910, L502.0500, L100.0100, L501.9985 #### [facility] [address] [place], [address] Hematocrit (Bld) [Volume fraction] 41.3 % Normal 40-54 [facility] Comment on above: Performed By: #### L 501.9520, L500.4100, L500.4050, L501.9910, L502.0500, L100.0100, L501.9985 #### [facility] [address] [place], [address] Hemoglobin (Bld) [Mass/Vol] 13.7 g/dL Normal 13.0-16.5 [facility] Comment on above: Performed By: #### L 501.9520, L500.4100, L500.4050, L501.9910, L502.0500, L100.0100, L501.9985 #### [facility] [address] [place], [address] IG% 0.200 Normal 0.0-0.9 [facility] Comment on above: Result Comment: IG% - Immature Granulocytes (promyelocytes, myelocytes and metamyelocytes) > 1% indicates that a LEFT SHIFT is Present. Performed By: #### L 501.9520, L500.4100, L500.4050, L501.9910, L502.0500, L100.0100, L501.9985 #### [facility] [address] [place], [address] Lymphocytes/100 WBC (Bld) 22.7 % Normal 19-41 [facility] Comment on above: Performed By: #### L 501.9520, L500.4100, L500.4050, L501.9910, L502.0500, L100.0100, L501.9985 #### [facility] Laboratory [address] [place], [address] MCH (RBC) [Entitic mass] 31.0 pg Normal 27.0-32.0 [facility] Comment on above: Performed By: #### L 501.9520, L500.4100, L500.4050, L501.9910, L502.0500, L100.0100, L501.9985 #### [facility] Laboratory [address] [place], [address] MCHC (RBC) [Mass/Vol] 33.2 g/dL Normal 32-36 [facility] Comment on above: Performed By: #### L 501.9520, L500.4100, L500.4050, L501.9910, L502.0500, L100.0100, L501.9985 #### [facility] Laboratory [address] [place], [address] MCV (RBC) [Entitic vol] 93.4 fL Normal 80-94 [facility] Comment on above: Performed By: #### L 501.9520, L500.4100, L500.4050, L501.9910, L502.0500, L100.0100, L501.9985 #### [facility] Laboratory [address] [place], [address] Monocytes/100 WBC (Bld) 10.1 % High 0-10 [facility] Comment on above: Performed By: #### L 501.9520, L500.4100, L500.4050, L501.9910, L502.0500, L100.0100, L501.9985 #### [facility] Laboratory [address] [place], [address] Neutrophils/100 WBC (Bld) 61.8 % Normal 47-70 [facility] Comment on above: Performed By: #### L 501.9520, L500.4100, L500.4050, L501.9910, L502.0500, L100.0100, L501.9985 #### [facility] Laboratory [address] [place], [address] Nucleated RBC (Bld) [#/Vol] 0 10*3/uL Normal 0-5 [facility] Comment on above: Performed By: #### L 501.9520, L500.4100, L500.4050, L501.9910, L502.0500, L100.0100, L501.9985 #### [facility] Laboratory [address] [place], [address] Platelet mean volume (Bld) [Entitic vol] 10.8 fL Normal 6.2-12.0 [facility] Comment on above: Performed By: #### L 501.9520, L500.4100, L500.4050, L501.9910, L502.0500, L100.0100, L501.9985 #### [facility] Laboratory [address] [place], [address] Platelets (Bld) [#/Vol] 244 10*3/uL Normal 150-450 [facility] Comment on above: Performed By: #### L 501.9520, L500.4100, L500.4050, L501.9910, L502.0500, L100.0100, L501.9985 #### [facility] Laboratory [address] [place], [address] RBC (Bld) [#/Vol] 4.42 10*6/uL Low 4.6-6.2 [facility] Comment on above: Performed By: #### L 501.9520, L500.4100, L500.4050, L501.9910, L502.0500, L100.0100, L501.9985 #### [facility] Laboratory [address] [place], [address] RDW SD 43.9 fl Normal 35.1-43.9 [facility] Comment on above: Performed By: #### L 501.9520, L500.4100, L500.4050, L501.9910, L502.0500, L100.0100, L501.9985 #### [facility] Laboratory [address] [place], [address] WBC (Bld) [#/Vol] 5.5 10*3/uL Normal 4.4-11.0 [facility] Comment on above: Performed By: #### L 501.9520, L500.4100, L500.4050, L501.9910, L502.0500, L100.0100, L501.9985 #### [facility] Laboratory [address] [place], [address] Comprehensive Metabolic Prof [facility] 01-23-2024 Albumin [Mass/Vol] 3.5 g/dL Normal 3.2-5.0 [facility] Comment on above: Performed By: #### L 501.9520, L500.4100, L500.4050, L501.9910, L502.0500, L100.0100, L501.9985 #### [facility] Laboratory [address] [place], [address] Albumin/Globulin [Mass ratio] 1.1 {ratio} Normal 0.9-2.4 [facility] Comment on above: Performed By: #### L 501.9520, L500.4100, L500.4050, L501.9910, L502.0500, L100.0100, L501.9985 #### [facility] Laboratory [address] [place], [address] ALK P 87 U/L Normal 45-117 [facility] Comment on above: Performed By: #### L 501.9520, L500.4100, L500.4050, L501.9910, L502.0500, L100.0100, L501.9985 #### [facility] Laboratory [address] [place], [address] ALT [Catalytic activity/Vol] 25 U/L Normal 16-61 [facility] Comment on above: Performed By: #### L 501.9520, L500.4100, L500.4050, L501.9910, L502.0500, L100.0100, L501.9985 #### [facility] Laboratory [address] [place], [address] AST [Catalytic activity/Vol] 17 U/L Normal 15-37 [facility] Comment on above: Performed By: #### L 501.9520, L500.4100, L500.4050, L501.9910, L502.0500, L100.0100, L501.9985 #### [facility] Laboratory [address] [place], [address] Bilirubin [Mass/Vol] 0.40 mg/dL Normal 0.20-1.00 [facility] Comment on above: Result Comment: For patients on eltrombopag therapy, use of Dimension Shelley TBIL is not recommended. Performed By: #### L 501.9520, L500.4100, L500.4050, L501.9910, L502.0500, L100.0100, L501.9985 #### [facility] Laboratory [address] [place], [address] BUN/CRE 14.1 RATIO Normal 10-20 [facility] Comment on above: Performed By: #### L 501.9520, L500.4100, L500.4050, L501.9910, L502.0500, L100.0100, L501.9985 #### [facility] Laboratory [address] [place], [address] CA,Total 9.0 mg/dL Normal 8.5-10.1 [facility] Comment on above: Performed By: #### L 501.9520, L500.4100, L500.4050, L501.9910, L502.0500, L100.0100, L501.9985 #### [facility] Laboratory [address] [place], [address] Chloride [Moles/Vol] 107 mmol/L Normal 98-107 [facility] Comment on above: Performed By: #### L 501.9520, L500.4100, L500.4050, L501.9910, L502.0500, L100.0100, L501.9985 #### [facility] Laboratory [address] [place], [address] CO2 [Moles/Vol] 28.0 mmol/L Normal 21.0-32.0 [facility] Comment on above: Performed By: #### L 501.9520, L500.4100, L500.4050, L501.9910, L502.0500, L100.0100, L501.9985 #### [facility] Laboratory [address] [place], [address] Creatinine [Mass/Vol] 0.92 mg/dL Normal 0.70-1.30 [facility] Comment on above: Result Comment: The validity of the calculated GFR GFRAA in patients over 70 years has not been determined. Clinical correlation is essential. Performed By: #### L 501.9520, L500.4100, L500.4050, L501.9910, L502.0500, L100.0100, L501.9985 #### [facility] Laboratory [address] [place], [address] EST GFR - AA 107 mL/min Normal >60 [facility] Comment on above: Result Comment: Afri can Grenadian GFR Calc Performed By: #### L 501.9520, L500.4100, L500.4050, L501.9910, L502.0500, L100.0100, L501.9985 #### [facility] Laboratory [address] [place], [address] GAP 3 Low 5-15 [facility] Comment on above: Performed By: #### L 501.9520, L500.4100, L500.4050, L501.9910, L502.0500, L100.0100, L501.9985 #### [facility] Laboratory [address] [place], [address] GFR/1.73 sq M.predicted among non-blacks MDRD (S/P/Bld) [Vol rate/Area] 88 mL/min/{1.73_m2} Normal >60 [facility] Comment on above: Result Comment: Non- GFR Calc Performed By: #### L 501.9520, L500.4100, L500.4050, L501.9910, L502.0500, L100.0100, L501.9985 #### [facility] Laboratory [address] [place], [address] Globulin (S) [Mass/Vol] 3.3 g/dL Normal 2.2-4.2 [facility] Comment on above: Performed By: #### L 501.9520, L500.4100, L500.4050, L501.9910, L502.0500, L100.0100, L501.9985 #### [facility] Laboratory [address], [address] Glucose [Mass/Vol] 85 mg/dL Normal 74-106 [facility] Comment on above: Performed By: #### L 501.9520, L500.4100, L500.4050, L501.9910, L502.0500, L100.0100, L501.9985 #### [facility] Laboratory [address] [place], [address] Potassium [Moles/Vol] 4.4 mmol/L Normal 3.5-5.1 [facility] Comment on above: Performed By: #### L 501.9520, L500.4100, L500.4050, L501.9910, L502.0500, L100.0100, L501.9985 #### [facility] Laboratory [address] [place], [address] Sodium [Moles/Vol] 138 mmol/L Normal 136-145 [facility] Comment on above: Performed By: #### L 501.9520, L500.4100, L500.4050, L501.9910, L502.0500, L100.0100, L501.9985 #### [facility] Laboratory [address] [place], [address] T PROT 6.8 g/dL Normal 6.4-8.2 [facility] Comment on above: Performed By: #### L 501.9520, L500.4100, L500.4050, L501.9910, L502.0500, L100.0100, L501.9985 #### [facility] Laboratory [address] [place], [address] Urea nitrogen [Mass/Vol] 13 mg/dL Normal 7-18 [facility] Comment on above: Performed By: #### L 501.9520, L500.4100, L500.4050, L501.9910, L502.0500, L100.0100, L501.9985 #### [facility] Laboratory [address] [place], [address] Hemoglobin A1con 01-23-2024 HbA1c (Bld) [Mass fraction] 5.2 % Normal 3.8-5.6 [facility] Comment on above: Result Comment: Norm al < 5.7 % Prediabetic 5.7 - 6.4 % Diabetic >or= 6.5 % Please note range changes. Performed By: #### L 501.9520, L500.4100, L500.4050, L501.9910, L502.0500, L100.0100, L501.9985 ####[facility] [address] [place], [address] Lipid Profileon 01-23-2024 Cholesterol [Mass/Vol] 148 mg/dL Normal 200 [facility] Comment on above: Result Comment: <200 mg/dL Desirable 200-240 mg/dL Borderline >240 mg/dL High Risk Performed By: #### L 501.9520, L500.4100, L500.4050, L501.9910, L502.0500, L100.0100, L501.9985 #### [facility] Laboratory [address] [place], [address] Cholesterol in HDL [Mass/Vol] 41 mg/dL Normal [facility] Comment on above: Result Comment: The drugs N-Acetylcysteine and Metamizole may falsely depress this assay. Reference Range HDL <40 mg/dL Low HDL Cholesterol HDL >or= 60 mg/dL High HDL Cholesterol Performed By: #### L 501.9520, L500.4100, L500.4050, L501.9910, L502.0500, L100.0100, L501.9985 #### [facility] Laboratory [address] [facility] [address] Cholesterol in LDL [Mass/Vol] 95 mg/dL Normal 0-130 [facility] Comment on above: Performed By: #### L 501.9520, L500.4100, L500.4050, L501.9910, L502.0500, L100.0100, L501.9985 #### [facility] Laboratory [address] [place], [address] Cholesterol in VLDL [Mass/Vol] 12 mg/dL Normal 5-40 [facility] Comment on above: Performed By: #### L 501.9520, L500.4100, L500.4050, L501.9910, L502.0500, L100.0100, L501.9985 #### [facility] Laboratory [address] [place], [address] Triglyceride [Mass/Vol] 62 mg/dL Normal [facility] Comment on above: Result Comment: The drugs N-Acetylcysteine and Metamizole may falsely depress this assay. Serum Triglycerides Reference Interval Normal <150 mg/dL Borderline high 150 - 199 mg/dL High 200 - 499 mg/dL Very High > or = 500 mg/dL Performed By: #### L 501.9520, L500.4100, L500.4050, L501.9910, L502.0500, L100.0100, L501.9985 #### [facility] Laboratory [address] [place], [address] Microalbumin,Random Urineon 01-23-2024 MICROALBUMIN,UR 6.8 mg/L Normal NO RANGE EST. [facility] Comment on above: Performed By: #### L 501.9520, L500.4100, L500.4050, L501.9910, L502.0500, L100.0100, L501.9985 ####[facility] [id number] [place], [place], [id number]) PSA,Total - Annual Screenon 01-23-2024 PSA,TOT SCREEN 0.76 ng/mL Normal 0.00-4.00 [facility] Comment on above: Result Comment: This test was performed using the TPSA assay method for the [employer] chemistry system. Values obtained with different assay methods cannot be used interchangably. When changing PSA assays in the course of monitoring a patient, additional sequential testing should be carried out to confirm baseline values. Performed By: #### L 501.9520, L500.4100, L500.4050, L501.9910, L502.0500, L100.0100, L501.9985 #### [facility] Laboratory [address] [place], [address] Thyroid Stim Hormone (TSH)on 01-23-2024 TSH 0.471 uIU/mL Normal 0.358-3.740 [facility] Comment on above: Performed By: #### L 501.9520, L500.4100, L500.4050, L501.9910, L502.0500, L100.0100, L501.9985 #### [facility] Laboratory [address] [place], [address] Basophil percentageon 2021 Chloride [Moles/Vol] 107 mmol/L 98-107 [facility] Work Phone: Cholesterol [Mass/Vol] 147 mg/dL <200 [facility] Work Phone: Comment on above: <200 mg/dL Desirable 200-240 mg/dL Borderline >240 mg/dL High Risk Glucose [Mass/Vol] 89 mg/dL 74-106 [facility] Work Phone: Potassium [Moles/Vol] 4.3 mmol/L 3.5-5.1 [facility] Work Phone: Sodium [Moles/Vol] 140 mmol/L 136-145 [facility] Work Phone: Triglyceride [Mass/Vol] 41 mg/dL <199 [facility] Work Phone: Comment on above: The drugs N-Acetylcy steine and Metamizole may falsely depress this assay.Serum Triglycerides Reference Interval Normal <150 mg/dL Borderline high 150 - 199 mg/dL High 200 - 499 mg/dL Very High > or = 500 mg/dL Laboratory - Chemistry and C hemistry - challengeon 01-31-2022 CO2 [Moles/Vol] 29.0 mmol/L 21.0-32.0 [facility] Work Phone: Urea nitrogen/Creatinine [Mass ratio] 14.3 mg/mg 02-01 [facility] Work Phone: No Panel Informationon 01-31 Estimated GFR (MDRD) Amer 100 mL/min >60 [facility] Work Phone: Comment on above: GFR Calc Estimated GFR (MDRD) Non-Af Amer 83 mL/min >60 [facility] Work Phone: Comment on above: Non- GFR Calc Prostate Specific Antigen Screen 0.77 ng/mL 0.00-4.00 [facility] Work Phone: Comment on above: This test was perfor med using the TPSA assay method for the[employer] chemistry system. Values obtained with differentassay methods cannot be used interchangably.When changing PSA assays in the course of monitoring apatient, additional sequential testing should be carriedout to confirm baseline values. Thyroid Stimulating Hormone (TSH) 0.55 uIU/mL 0.358-3.74 [facility] Work Phone: Vitamin D 25-Hydroxy 54.0 ng/mL [facility] Work Phone: Comment on above: Vitamin D 25(OH) Sta tus Range Deficiency <20 ng/mL (50nmol/L) Insufficiency 20 - 30 ng/mL (50 - 75 nmol/L) Sufficiency 30 - 100 ng/mL (75 - 250 nmol/L) Toxicity >100 ng/mL (>250 nmol/L) Serum or plasma calcium mickey urement (mass/volume)on 01-31-2022 Calcium [Mass/Vol] 9.2 mg/dL 8.5-10.1 [facility] Work Phone: Serum or plasma cholesterol in HDL measurement (mass/volume)on 01-31-2022 Cholesterol in HDL [Mass/Vol] 45 mg/dL >40 [facility] Work Phone: Comment on above: The drugs N-Acetylcy steine and Metamizole may falsely depress this assay. Reference Range HDL <40 mg/dL Low HDL Cholesterol HDL >or= 60 mg/dL High HDL Cholesterol Serum or plasma cholesterol in VLDL measurement (mass/volume)on 01-31-2022 Cholesterol in VLDL [Mass/Vol] 8 mg/dL 5-40 [facility] Work Phone: Serum or plasma creatinine m easurement (mass/volume)on 01-31-2022 Creatinine [Mass/Vol] 0.98 mg/dL 0.70-1.30 [facility] Work Phone: Comment on above: The validity of the calculated GFR & GFRAA in patients over 70 years has not been determined. Clinical correlation is essential. Serum or plasma low density lipoprotein (LDL) cholesterol measurement (mass/volume)on 01-31-2022 Cholesterol in LDL [Mass/Vol] 94 mg/dL 0-130 [facility] Work Phone: Serum or plasma urea nitroge n measurement (mass/volume)on 01-31-2022 Urea nitrogen [Mass/Vol] 14 mg/dL 7-18 [facility] Work Phone: Thin prep Papanicolaou smear with manual screeningon 01-31-2022 Thin prep Papanicolaou smear with manual screening 4 5-15 [facility] Work Phone: Office Visiton 09-27-2016 Dietary management education, guidance, and counseling (procedure) yes Invalid Interpretation Code [facility] [employer] Work Phone: Documentation of current medications (procedure) Done Invalid Interpretation Code [facility] [employer] Work Phone: Fall risk assessment No [facility] [employer] Work Phone: Protein mass conc Done [facility] [employer] Work Phone: Tobacco smoking status NHIS Current [facility] [employer] Work Phone: Tobacco smoking status [facility] Never smoker [facility] [employer] Work Phone: Tobacco use [facility] Never smoker Invalid Interpretation Code [facility] [employer] Work Phone: Office Visit: [employer] 09-21-19 17 Documentation of current medications (procedure) Done Invalid Interpretation Code [facility] Work Phone: Fall risk assessment No Invalid Interpretation Code [facility] Work Phone: Office Visiton 03-21-2016 Dietary management education, guidance, and counseling (procedure) yes Invalid Interpretation Code [facility] Work Phone: Documentation of current medications (procedure) Done Invalid Interpretation Code [facility] Work Phone: 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 12-29-2015 BUN/Creatinine Ratio 16.7 mg/mg [facility] Work Phone: Calcium 8.6 mg/dL [facility] Work Phone: [phone] Chloride 99 mmol/L [facility] Work Phone: [phone] Cholesterol 139 mg/dL [facility] Work Phone: [phone] CO2 30.0 mmol/L Invalid Interpretation Code [facility] Work Phone: [phone] CO2 ppres (BldV) 30.0 mmol/L [facility] [employer] Work Phone: Creatinine 1.02 mg/dL [facility] Work Phone: [phone] Glucose 95 mg/dL Invalid Interpretation Code [facility] Work Phone: [phone] Glucose mass conc 95 mg/dL [facility] [employer] Work Phone: HDL Cholesterol 41 mg/dL [facility] Work Phone: [phone] LDL Cholesterol 80 mg/dL [facility] Work Phone: [phone] Potassium 4.2 mmol/L [facility] Work Phone: [phone] Sodium 133 mmol/L [facility] Work Phone: [phone] Triglyceride 91 mg/dL [facility] Work Phone: [phone] Urea nitrogen 17 mg/dL [facility] Work Phone: [phone] 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 Left ventricular Ejection fraction 55 % [facility] Work Phone: [phone] Office Visiton 06-23-2015 cardiac risk group [facility] Work Phone: [phone] risk [address] [facility] Work Phone: [phone] General cardiovascular disease 10Y risk [#] [place] Not enough information [facility] Work Phone: [phone] Tobacco smoking status NHIS Current Invalid Interpretation Code [facility] Work Phone: [phone] Replaced Document: [employer] E CG Observationson 06-23-2015 EKG QRS axis 27 deg [facility] Work Phone: electrocardiogram interpretation Sinus Bradycardia - frequent PAC s # PACs = 3.WITHIN NORMAL LIMITS Invalid Interpretation Code [facility] Work Phone: [phone] GE use only - for [employer] import when terms are not otherwise specified 405 ms Invalid Interpretation Code [employer] Work Phone: [phone] Interpretation Sinus Bradycardia - frequent PAC s # PACs = 3.WITHIN NORMAL LIMITS [facility] [employer] Work Phone: [phone] P [place] 48 deg [facility] [employer] Work Phone: [phone] P wave axis, electrocardiogram 48 deg Invalid Interpretation Code [employer] Work Phone: [phone] Interval 148 ms [facility] [employer] Work Phone: [phone] CT interval, electrocardiogram 148 ms Invalid Interpretation Code [employer] Work Phone: [phone] Pulse (Heart Rate) 59 /min Invalid Interpretation Code [employer] Work Phone: [phone] QRS axis, electrocardiogram 27 deg Invalid Interpretation Code [employer] Work Phone: [phone] QRS Duration 97 ms [facility] [employer] Work Phone: [phone] QRS duration, electrocardiogram 97 ms Invalid Interpretation Code [employer] Work Phone: [phone] QT Interval new path ms [facility] [employer] Work Phone: [phone] QT interval, electrocardiogram new path ms Invalid Interpretation Code [employer] Work Phone: [phone] QTc [place] 405 ms [facility] [employer] Work Phone: [phone] T [place] -1 deg [facility] [employer] Work Phone: [phone] T wave axis, electrocardiogram -1 deg Invalid Interpretation Code [employer] Work Phone: [phone] 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 06-20-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 Alanine aminotransferase (ALT) 25 U/L [facility] [employer] Work Phone: [phone] Albumin 3.7 g/dL [employer] Work Phone: [phone] Alkaline phosphatase (ALP) 85 U/L Invalid Interpretation Code [employer] Work Phone: [phone] ALP enzyme act/vol (Bld) 85 U/L [facility] [employer] Work Phone: [phone] Anion gap 4 mmol/L Low [employer] Work Phone: [phone] Anion gap molar conc 4 mmol/L Low [facility] Work Phone: Aspartate aminotransferase (AST) 15 U/L [facility] Work Phone: [phone] Bilirubin (total) 0.40 mg/dL [facility] Work Phone: [phone] Protein 7.4 g/dL [facility] Work Phone: [phone] 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 01-29-2024 08:52-0400 Heart rate 48 /min Joe Perez MD Work Phone: [facility] 01-29-2024 08:52-0400 Systolic blood pressure 158 mm[Hg] Joe Perez MD Work Phone: [facility] 06-14-2022 08:31-0500 Body height 177.[address] Mark Stephens Work Phone: [facility] 06-14-2022 08:31-0500 Body mass index (BMI) [Ratio] 33 kg/m2 Dr. Mark Stephens Work Phone: [facility] 06-14-2022 08:31-0500 Body temperature 97.2 [degF] Dr. Mark Stephens Work Phone: [facility] 06-14-2022 08:31-0500 Body weight 104.[address] Mark Stephens Work Phone: [facility] 06-14-2022 08:31-0500 Diastolic blood pressure 86 mm[Hg] Dr. Mark Stephens Work Phone: [facility] 06-14-2022 08:31-0500 Heart rate 83 /min Dr. Mark Stephens Work Phone: [facility] 06-14-2022 08:31-0500 Respiratory rate 18 /min Dr. Mark Stephens Work Phone: [facility] 06-14-2022 08:31-0500 SaO2% (BldA) [Mass fraction] 95 % Dr. Mark Stephens Work Phone: [facility] 06-14-2022 08:31-0500 Systolic blood pressure 142 mm[Hg] Dr. Mark Stephens Work Phone: [facility] 05-03-2022 08:09-0500 Body height 177.[address] Mark Stephens Work Phone: [facility] 05-03-2022 08:09-0500 Body mass index (BMI) [Ratio] 33 kg/m2 Dr. Mark Stephens Work Phone: [facility] 05-03-2022 08:09-0500 Body temperature 97.6 [degF] Dr. Mark Stephens Work Phone: [facility] 05-03-2022 08:09-0500 Body weight 104.[address] Mark Stephens Work Phone: [facility] 05-03-2022 08:09-0500 Diastolic blood pressure 87 mm[Hg] Dr. Mark Stephens Work Phone: [facility] 05-03-2022 08:09-0500 Heart rate 69 /min Dr. Mark Stephens Work Phone: [facility] 05-03-2022 08:09-0500 Respiratory rate 18 /min Dr. Mark Stephens Work Phone: [facility] 05-03-2022 08:09-0500 SaO2% (BldA) [Mass fraction] 97 % Dr. Mark Stephens Work Phone: [facility] 05-03-2022 08:09-0500 Systolic blood pressure 143 mm[Hg] Dr. Mark Stephens Work Phone: [facility] 09-27-2016 08:59-0400 BMI (Body Mass Index) 29.96 kg/m2 Roman Ledbetter MD [facility] Work Phone: 09-27-2016 08:59-0400 Body Temperature 98.4 [degF] Roman Ledbetter MD [facility] Work Phone: 09-27-2016 08:59-0400 BP Diastolic 78 mm[Hg] Roman Ledbetter MD [facility] [employer] Work Phone: 09-27-2016 08:59-0400 BP Systolic 129 mm[Hg] Roman Ledbetter MD [facility] Work Phone: 09-27-2016 08:59-0400 Height 177.8 cm Roman Ledbetter MD [facility] [employer] Work Phone: 09-27-2016 08:59-0400 Pulse (Heart Rate) 52 /min Roman Ledbetter MD [facility] [employer] Work Phone: 09-27-2016 08:59-0400 Pulse Oximetry 94 % Roman Ledbetter MD [facility] [employer] Work Phone: 09-27-2016 08:59-0400 Respiratory Rate 20 /min Roman Ledbetter MD [facility] [employer] Work Phone: 09-27-2016 08:59-0400 Weight 94.71 kg Roman Ledbetter MD [facility] [employer] Work Phone: 09-20-2016 13:42-0400 BMI (Body Mass Index) 31.19 kg/m2 [facility] Work Phone: 09-20-2016 13:42-0400 BP Diastolic 82 mm[Hg] [facility] Work Phone: 09-20-2016 13:42-0400 BP Systolic 128 mm[Hg] [facility] Work Phone: 09-20-2016 13:42-0400 Pulse (Heart Rate) 82 /min [facility] Work Phone: 09-20-2016 13:42-0400 Weight 98.61 kg Maty Campbell [facility] Work Phone: 03-21-2016 16:16-0500 BMI (Body Mass Index) 30.42 kg/m2 Ronnie Castillo [facility] Work Phone: 03-21-2016 16:16-0500 BP Diastolic 62 mm[Hg] Ronnie DeFinis [facility] Work Phone: 03-21-2016 16:16-0500 BP Systolic 102 mm[Hg] Geoumi DeFinis [facility] Work Phone: 03-21-2016 16:16-0500 BSA (Body Surface Area) 2.14 m2 Ronnie DeFinis [facility] Work Phone: 03-21-2016 16:16-0500 Pulse (Heart Rate) 56 /min Harrakan DeFinis [facility] Work Phone: 03-21-2016 16:16-0500 Respiratory Rate 18 /min [facility]nie [facility]is [facility] Work Phone: 03-21-2016 16:16-0500 Weight 96.16 kg Ronnie DeFinis [facility] Work Phone: 06-23-2015 11:03-0500 Heart rate 59 /min Megan Cox [facility] Work Phone: 06-23-2015 10:31-0500 BP Diastolic 60 mm[Hg] Ronnie DeFinis [facility] Work Phone: 06-23-2015 10:31-0500 BP Systolic 112 mm[Hg] Ronnie DeFinis [facility] Work Phone: 06-23-2015 10:31-0500 Height 177.8 cm Ronnie DeFinis [facility] Work Phone: Encounters Encounter Date Encounter Type Care Provider Facility Start: 04-09-2024 End: 04-09-2024 ambulatory Brady Arnaud Facility:[facility] Start: 03-25-2024 End: 03-25-2024 ambulatory EDDIE TORONGER Facility:[facility] Start: 03-25-2024 End: 03-25-2024 Patient encounter procedure Joe Perez MD Work Phone: Ophthalmology Comment on above: 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); Combined forms of age-related cataract of right eye; Regular astigmatism of both eyes; Epiretinal membrane (ERM) of right eye; High myopia, both eyes; Essential hypertension; Bradycardia Start: 03-19-2024 End: 03-19-2024 [facility] Start: 02-27-2024 End: 02-27-2024 ambulatory [facility] Facility:[facility] Start: 02-27-2024 End: 02-27-2024 ambulatory [facility] Facility:[facility] Start: 01-29-2024 End: 01-29-2024 ambulatory [facility] Facility:[facility] Start: 01-29-2024 End: 01-29-2024 Patient encounter procedure Joe Perez MD Work Phone: Ophthalmology Comment on above: 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 Mark Stephens Work Phone: [facility] Work Phone: Start: 07-12-2022 End: 07-12-[address] Mark Stephens Work Phone: [facility] Start: 06-14-2022 End: 06-14-[address] Mark Stephens Work Phone: [facility]Pulmonary [facility] Start: 05-24-2022 End: 05-24-[address] Mrak Stephens Work Phone: [facility] Work Phone: Start: 05-24-2022 End: 05-24-[address] Mark Stephens Work Phone: [facility] Start: 05-03-2022 End: 05-03-[address] Mark Stephens Work Phone: [facility] Start: 01-31-2022 End: 01-31-2022 ambulatory [facility] Work Phone: Start: 01-31-2022 End: 01-31-2022 Patient encounter procedure [facility] [place] Procedures Date Procedure Procedure Detail Performing Clinician Start: 03-25-2024 Computerized corneal topography uni/bi Joe Perez MD Work Phone: Start: 03-25-2024 IOL BIOMETRY W/ IOL CALC OU (BOTH EYES) Joe Perez MD Work Phone: Start: 01-29-2024 IOL BIOMETRY W/ IOL CALC OU (BOTH EYES) Joe Perez MD Work Phone: Start: 01-29-2024 End: 01-29-2024 Computerized ophthalmic imaging retina Joe Perez MD Work Phone: Start: 01-31-2022 Radiologic examination of knee Start: 09-27-2016 End: 09-27-2016 Dietary management education, guidance, and counseling Megan Cox Start: 09-27-2016 Screening for malignant neoplasm of colon Screening, colon ca Megan Cox Start: 09-20-2016 End: 09-20-2016 Follow Up Appt 6 months Odessa aparicio PA-C Work Phone: Start: 09-20-2016 End: 09-20-2016 PFM Odessa Bragg PA-C Work Phone: Start: 03-21-2016 End: 03-21-2016 Follow Up Appt 6 months Mark Gardner MD Start: 03-21-2016 End: 03-21-2016 MMM Mark Gardner MD Start: 07-28-2015 End: 07-28-2015 Follow Up Appt 6 months Odessa aparicio PA-C Work Phone: Start: 07-28-2015 End: 07-28-2015 PFM Odessa Bragg PA-C Work Phone: Start: 06-23-2015 End: 07-28-2015 24 hour holter monitor Mark Gardner MD Start: 06-23-2015 End: 07-28-2015 Echocardiography Mark Gardner MD Start: 06-23-2015 End: 06-30-2015 Electrocardiogram, complete Mark beck MD Start: 06-23-2015 End: 06-23-2015 Follow Up Appt 1 month Mark Gardner MD Start: 06-23-2015 End: 06-30-2015 Follow Up Appt Other Mark Gardner MD Start: 06-23-2015 End: 06-23-2015 MMM Mark Gardner MD Start: 06-23-2015 End: 09-05-2016 Thyroid stimulating hormone (TSH) Mark Gardner MD Start: 06-23-2015 End: 09-05-2016 Thyroxine (T4) Mark Gardner MD Plan of Treatment Date Care Activity Detail Author Start: 2036 RSV Vaccine (1 - 1-dose 75+ series) RSV Vaccine (1 - 1-dose 75+ series) [facility] Start: 09-11-2028 Urine microalbumin profile DTaP,Tdap,Td Vaccine (2 - Td or Tdap) [facility] Start: 09-23-2024 End: 09-23-2024 Patient encounter procedure 09/23/2024 8:00 AM EDT Office Visit [facility] [address] [place] [address] Joe Perez MD [address] [place] [address] CAT EVAL Ophthalmology Comment on above: CAT EVAL Start: 03-25-2024 End: 03-25-2024 Patient encounter procedure 03/25/2024 8:30 AM EST Office Visit [facility] [address] [place] [address] Joe Perez MD [address] [place] [address] ascan/possibly schedule surgery Ophthalmology Comment on above: ascan/possibly schedule surgery Start: 04-25-2017 End: 04-25-2017 Appointment Appointment [facility] Work Phone: Start: 2016 Prostate specific antigen measurement Prostate Cancer Screening Discussion [facility] Start: 2016 End: 2016 Appointment Appointment [facility] [employer] Work Phone: Start: 09-27-2016 End: 09-27-2016 Appointment Appointment [facility] [facility] Work Phone: Start: 09-27-2016 End: 09-27-2016 Diagnostic colonoscopy Colonoscopy [facility] [employer] Work Phone: Start: 09-20-2016 End: 09-20-2016 Appointment Appointment [facility] Work Phone: Start: 09-20-2016 End: 09-20-2016 Follow Up Appt 6 months Follow Up Appt 6 months [facility] Work Phone: Start: 09-20-2016 End: 09-20-2016 PFM PFM [facility] Work Phone: Start: 03-21-2016 End: 03-21-2016 Follow Up Appt 6 months Follow Up Appt 6 months [facility] Work Phone: Start: 03-21-2016 End: 03-21-2016 MMM MMM [facility] Work Phone: Start: 07-28-2015 End: 07-28-2015 Follow Up Appt 6 months Follow Up Appt 6 months [facility] Work Phone: Start: 07-28-2015 End: 07-28-2015 PFM PFM [facility] Work Phone: Start: 06-23-2015 End: 06-23-2015 24 hour holter monitor 24 hour holter monitor [facility] Work Phone: Start: 06-23-2015 End: 06-23-2015 Echocardiography Echocardiogram (complete) [facility] Work Phone: Start: 06-23-2015 End: 06-30-2015 Electrocardiogram, complete EKG (In office) [facility] Work Phone: Start: 06-23-2015 End: 06-23-2015 Follow Up Appt 1 month Follow Up Appt 1 month [facility] Work Phone: Start: 06-23-2015 End: 06-30-2015 Follow Up Appt Other Follow Up Appt Other [facility] Work Phone: Start: 06-23-2015 End: 06-23-2015 MMM MMM [facility] Work Phone: Start: 06-23-2015 End: 09-05-2016 Thyroid stimulating hormone (TSH) *TSH [facility] Work Phone: Start: 06-23-2015 End: 09-05-2016 Thyroxine (T4) *T4 (Total) [facility] Work Phone: Start: 2006 Diabetes Screening Diabetes Screening [facility] Start: 2006 Screening for malignant neoplasm of colon [facility] Start: 1996 Lipid panel Lipid Screening [facility] Start: 11-03-1979 Anxiety Screening Anxiety Screening [facility] Start: 11-03-1979 Depression Screening Depression Screening [facility] Start: 11-03-1979 Hepatitis C screening Hepatitis C Screening [facility] Start: 11-03-1979 HIV screening HIV Screening [facility] Payers Date Payer Category Payer Self-pay [id number] 2023 Unknown [employer] PPO [id number] 2023-Present [phone] [address] [place] [address] PPO [id number] 2014 Unknown [id number] Unknown [facility] PACKAGE PLAN . [id number] Unknown [id number] Unknown [id number] Unknown [id number] Unknown [id number] Unknown [id number] Social History Date Type Detail Facility Start: 04-11-2021 End: 06-14-2022 Tobacco smoking status NHIS Unknown if ever smoked [facility] Start: 1960 Sex Assigned At Male [facility] Start: 01-29-2024 Tobacco smoking stat us NHIS Never smoked tobacco [facility] Start: 01-29-2024 Tobacco use and exposure User of smokeless tobacco [facility] Start: 01-29-2024 End: 03-25-2024 Alcoholic beverage intake Ex-drinker (finding) [facility] Start: 1960 Sex assigned at Not on file [facility] Start: 01-29-2024 End: 03-25-2024 Gender identity Not on file [facility] Start: 01-29-2024 End: 03-25-2024 History of Social function [facility] National Score (1-10 0), lower number is lower risk [address] [facility] Clinical Notes 01-29-2024 to 03-25-2024 Patient InstructionsJoe Perez MD - 03/25/2024 8:57 AM ESTPatient InstructionsJoe Perez MD - 01/29/2024 9:34 AM EDT Note Date & Type Note Facility 03-25-2024 Note Date of Procedure 03/25/2024. [employer] Exchange Administrator Information Poured Wall Foreman: danica. [facility] 03-25-2024 Note Date of Procedure 03/25/2024. [employer] Administrator Information Poured Wall Foreman: danica. Notes Measurements only - see Procedure Record under Scanned Documents for signed results. [facility] 03-25-2024 Instructions Joe Perez MD - 03/25/2024 8:59 AM EST Systane Complete Artificial Tears - Use 1 Drop into both eyes three times a day. If you have any questions please contact our office at [phone]. After office hours or on the weekend, please call Dr. Perez on his cell phone at [phone]. documented in this encounter [facility] 03-25-2024 Note HNO ID: [id number] Author: JOE PEREZ MD Service: ? Author Type: Physician Type: Progress Notes Filed: 03/25/2024 09:01 Note Text: ASSESSMENT/PLAN: 1. Combined forms of age-related cataract of left eye - ICD9: 366.19, ICD10: H25.812 (primary diagnosis) 2. Combined forms of age-related cataract of right eye - ICD9: 366.19, ICD10: H25.811 - Patient is satisfied with his vision at this time - Return in 6 months 3. Regular astigmatism of both eyes - ICD9: 367.21, ICD10: H52.223 - Monitor 4. Epiretinal membrane (ERM) of right eye - ICD9: 362.56, ICD10: H35.371 5. High myopia, both eyes - ICD9: 367.1, ICD10: H52.13 - See retina specialist, Dr. Benítez 6. Essential hypertension - ICD9: 401.9, ICD10: I10 7. Bradycardia - ICD9: 427.89, ICD10: R00.1 - Patient currently under the care of replacer to regulate blood pressure and pulse I have confirmed and edited as necessary the relevant HPI, ophthalmic history, ROS, and the neuro exam findings as obtained by others. I have seen and examined Praveen Lyons. I have discussed the case and the management of this patient's care with the Resident/Fellow, if applicable. I also have reviewed and agree with the assessment and plan as stated above and agree with all of its relevant components. [facility] 03-25-2024 History of Presen t illness Narrative ASSESSMENT/PLAN: 1. Combined forms of age-related cataract of left eye - ICD9: 366.19, ICD10: H25.812 (primary diagnosis) 2. Combined forms of age-related cataract of right eye - ICD9: 366.19, ICD10: H25.811 - Patient is satisfied with his vision at this time - Return in 6 months 3. Regular astigmatism of both eyes - ICD9: 367.21, ICD10: H52.223 - Monitor 4. Epiretinal membrane (ERM) of right eye - ICD9: 362.56, ICD10: H35.371 5. High myopia, both eyes - ICD9: 367.1, ICD10: H52.13 - See retina specialist, Dr. Benítez 6. Essential hypertension - ICD9: 401.9, ICD10: I10 7. Bradycardia - ICD9: 427.89, ICD10: R00.1 - Patient currently under the care of replacer to regulate blood pressure and pulse I have confirmed and edited as necessary the relevant HPI, ophthalmic history, ROS, and the neuro exam findings as obtained by others. I have seen and examined Praveen Lyons. I have discussed the case and the management of this patient's care with the Resident/Fellow, if applicable. I also have reviewed and agree with the assessment and plan as stated above and agree with all of its relevant components. documented in this encounter [facility] 01-29-2024 Note Date of Procedure 01/29/2024. [employer] Administrator Information Poured Wall Foreman: SIVAN. Astigmatism Right Eye Regular. Left Eye Regular. [facility] 01-29-2024 Note Date of Procedure 01/29/2024. [employer] Exchange Administrator Information Poured Wall Foreman: TK. Notes Measurements only - see Procedure Record under Scanned Documents for signed results. [facility] 01-29-2024 Note Date of Procedure 01/29/2024. Interpretation Right Eye Abnormal foveal contour. Findings include Epiretinal membrane. Left Eye Normal foveal contour. [facility] 01-29-2024 Note Date of Procedure 01/29/2024. [employer] Exchange Administrator Information Poured Wall Foreman: TK. Astigmatism Right Eye Regular. [facility] 01-29-2024 Instructions Joe Perez MD - 01/29/2024 9:45 AM EDT Recommended patient see Dr. Everardo Mcnulty for refraction and glasses. If vision cannot be improved, proceed with cataract surgery. Start: Systane Complete solution instill 1 drop 3 times daily Both Eyes. If you have any questions please contact our office at [phone]. After office hours or on the weekend, please call Dr. Perez on his cell phone at [phone]. documented in this encounter [facility] 01-29-2024 Note HNO ID: [id number] Author: JOE PEREZ MD Service: ? Author Type: Physician Type: Progress Notes Filed: 01/29/2024 09:47 Note Text: Fundus exam performed with a 90 D, 20, D, and Quadraspheric lens Both Eyes. ASSESSMENT/PLAN: 1. Combined forms of age-related cataract of left eye - ICD9: 366.19, ICD10: H25.812 (primary diagnosis) 2. Combined forms of age-related cataract of right eye - ICD9: 366.19, ICD10: H25.811 - IOL BIOMETRY W/ IOL CALC OU (BOTH EYES) - OCT MACULA CIRRUS OU (BOTH EYES) Recommended patient see Dr. Everardo Mcnulty for refraction and glasses. If vision cannot be improved, proceed with cataract surgery. Start: Systane Complete solution instill 1 drop 3 times daily Both Eyes. 3. Regular astigmatism of both eyes - ICD9: 367.21, ICD10: H52.223 - CORNEAL TOPOGRAPHY ATLAS OU (BOTH EYES) - CORNEAL TOPOGRAPHY PENTACAM OU (BOTH EYES) Patient was given written information, watched a video, and was educated on the Toric intraocular lens. 4. Epiretinal membrane (ERM) of right eye - ICD9: 362.56, ICD10: H35.371 Monitor for progression Right Eye. Recommended patient have retina clearance before proceeding with cataract surgery. 5. Essential hypertension - ICD9: 401.9, ICD10: I10 Blood pressure 158/80, pulse (!) 48. Continue to monitor with primary care physician. 6. Bradycardia - ICD9: 427.89, ICD10: R00.1 Recommended patient see Cardiology for further evaluation and treatment. I have confirmed and edited as necessary the relevant HPI, ophthalmic history, ROS, and the neuro exam findings as obtained by others. I have seen and examined Praveen Lyons.I have discussed the case and the management of this patient's care with the Resident/Fellow, if applicable. I also have reviewed and agree with the assessment and plan as stated above and agree with all of its relevant components. [facility] 01-29-2024 History of Presen t illness Narrative Fundus exam performed with a 90 D, 20, D, and Quadraspheric lens Both Eyes. ASSESSMENT/PLAN: 1. Combined forms of age-related cataract of left eye - ICD9: 366.19, ICD10: H25.812 (primary diagnosis) 2. Combined forms of age-related cataract of right eye - ICD9: 366.19, ICD10: H25.811 - IOL BIOMETRY W/ IOL CALC OU (BOTH EYES) - OCT MACULA CIRRUS OU (BOTH EYES) Recommended patient see Dr. Everardo Mcnulty for refraction and glasses. If vision cannot be improved, proceed with cataract surgery. Start: Systane Complete solution instill 1 drop 3 times daily Both Eyes. 3. Regular astigmatism of both eyes - ICD9: 367.21, ICD10: H52.223 - CORNEAL TOPOGRAPHY ATLAS OU (BOTH EYES) - CORNEAL TOPOGRAPHY PENTACAM OU (BOTH EYES) Patient was given written information, watched a video, and was educated on the Toric intraocular lens. 4. Epiretinal membrane (ERM) of right eye - ICD9: 362.56, ICD10: H35.371 Monitor for progression Right Eye. Recommended patient have retina clearance before proceeding with cataract surgery. 5. Essential hypertension - ICD9: 401.9, ICD10: I10 Blood pressure 158/80, pulse (!) 48. Continue to monitor with primary care physician. 6. Bradycardia - ICD9: 427.89, ICD10: R00.1 Recommended patient see Cardiology for further evaluation and treatment. I have confirmed and edited as necessary the relevant HPI, ophthalmic history, ROS, and the neuro exam findings as obtained by others. I have seen and examined Praveen Lyons.I have discussed the case and the management of this patient's care with the Resident/Fellow, if applicable. I also have reviewed and agree with the assessment and plan as stated above and agree with all of its relevant components. documented in this encounter [facility] Evaluation note No assessment inform ation available [facility] Work Phone: Evaluation note Diagnosis Onset Date Daytime hypersomnia acute [facility] Work Phone: Evaluation note* Diagnosis Onset Date Resolution Status Daytime hypersomnia acute PABLO (obstructive sleep apnea) acute BMI 33.0-33.9,adult chronic [facility] Work Phone: Evaluation note* Diagnosis Combined forms of age-related cataract of left eye- Primary Other and combined forms of senile cataract Combined forms of age-related cataract of right eye Other and combined forms of senile cataract Regular astigmatism of both eyes Regular astigmatism Epiretinal membrane (ERM) of right eye Essential hypertension Unspecified essential hypertension Bradycardia Other specified cardiac dysrhythmias [facility] Combined forms of age-related cataract of left eye- Primary Other and combined forms of senile cataract Combined forms of age-related cataract of right eye Other and combined forms of senile cataract Regular astigmatism of both eyes Regular astigmatism Epiretinal membrane (ERM) of right eye High myopia, both eyes Myopia Essential hypertension Unspecified essential hypertension Bradycardia Other specified cardiac dysrhythmias documented in this encounter [facility] Family History No Family History Records Found Relationship Condition Age at Onset Recorded Date/T saroj grandfather Coronary artery disease Unknown Hypertension Unknown grandmother Diabetes mellitus Unknown father Hypertension Unknown Advance Directives No Advanced Directives Records Found Advance Directive Response Recorded Date/ Time Living Will No October 26, 2016 8:55am Power of Centrifugal Spinner No October 26 7 8:55am Advance Directive Response Recorded Date/ Time Living Will No October 26, 2016 7:55am Power of Centrifugal Spinner No October 26 7:55am Chief Complaint and Reason for Visit Chief Complaint Sleep apnea HYPERSOMNIA Reason for Visit Daytime hypersomnia Chief Complaint Sleep apnea HYPERSOMNIA 6 wk FU PABLO; AUTO CPAP *INVENTORY TAGGED Reason for Visit Daytime hypersomnia PABLO (obstructive sleep apnea) BMI 33.0-33.9,adult Summary Purpose Additional Source Comments Goals (unrecognized section and content) Goals may be documented in a n alternate sectionGoals may be documented in an alternate sectionGoals may be documented in an alternate section Care Teams (unrecognized sec tion and content) Team Status: Active Member Role Status Dates Dr. Mark Stephens MD Family Provider Active Dr. Mark Stephens MD Primary Care Provider Active Team Status: Inactive Member Role Status Dates Dr. Mark Stephens MD Primary Care Provider, Referring Provider Active Yuki Bean STOGY MAKER, STOGY MAKER-C Attending Provider Active Team Status: Inactive Member Role Status Dates Dr. Mark Stephens MD Primary Care Provider Active Yuki Bean STOGY MAKER, STOGY MAKER-C Attending Provider, Referrin g Provider Active Team Status: Inactive Member Role Status Dates Dr. Mark Stephens MD Primary Care Provider Active Yuki Bean STOGY MAKER, STOGY MAKER-C Attending Provider Active Logistics Supervisor Relationship Specialty Start Date End Date Eddie Sanchez DO [address] [facility] [address] [place] [address] PCP - General Family Medicine 01/29/24 Logistics Supervisor Relationship Specialty Start Date End Date Eddie Sanchez DO PCP - General Family Medicine 01/29/24 Source Comments (unrecognize d section and content) In the event this informatio n is protected by the Federal Confidentiality of Alcohol and Drug Abuse Patient Records regulations: The Federal rules restrict any use of the information to criminally investigate or prosecute any alcohol or drug abuse patient[facility] event this information is protected by the Federal Confidentiality of Alcohol and Drug Abuse Patient Records regulations: The Federal rules restrict any use of the information to criminally investigate or prosecute any alcohol or drug abuse patient.[facility] Reason for Visit (unrecogniz ed section and content) Reason Comments Blurred Vision Both Eyes Difficulty Reading Both Eyes Glare Both Eyes Reason Comments Cataract Follow Up (unrecognized sect ion and content) No Status Records FoundNo Status Records Found INFORMATION SOURCE (unrecogn ized section and content) DATE CREATED AUTHOR 03/28/[address] [facility] DATE CREATED AUTHOR AUTHOR'S ORGANIZ ATION 05/16/2024 [facility] FOR RECORDS PERTAINING TO PATIENTS WHO ARE OR HAVE BEEN ENROLLED IN A CHEMICAL DEPENDENCY/SUBSTANCEABUSE PROGRAM, SOME INFORMATION MAY BE OMITTED. This clinical summary was aggregated from multiple sources. Caution should be exercised in using it in the provision of clinical care. This summary normalizes information from multiple sources, and as a consequence, information in this document may materially change the coding, format and clinical context of patient data. In addition, data may be omitted in some cases. CLINICAL DECISIONS SHOULD BE BASED ON THE PRIMARY CLINICAL RECORDS. [employer] [facility]. provides no warranty or guarantee of the accuracy or completeness of information in this document.
[2024-10-30 09:51] LABS: AST(SGOT) 23 U/L (<=37); Alanine Aminotransfer ALT/SGPT 21 U/L (<=46); Albumin, Serum 4.0 g/dL (3.4-4.8); Alkaline Phosphatase 85 U/L (40-129); Anion Gap 9 (5-15); BUN 15 mg/dL (4-19); BUN/Creat Ratio 15.1 RATIO (10-20); Calcium,Total 9.1 mg/dL (7.6-11.0); Carbon Dioxide 25.5 mmol/L (21.0-32.0); Chloride 102 mmol/L (98-108); Cholesterol 151 mg/dL (<=200); Globulin 2.7 g/dL (2.2-4.2); Glucose 90 mg/dL (70-99); Low Density Lipoprotein Calc. 95 mg/dL; Potassium 4.4 mmol/L (3.3-5.1); Triglycerides 78 mg/dL; Very Low Density Lipoprotein 16 mg/dL (5-40); cholesterol:hdl ratio screen 3.75
== END | disposition home or self-care (01) ==
LOC: LAB 08:28
PROVIDERS: PCP Family Medicine; Referring Provider Nurse Practitioner Family; Visit Provider Nurse Practitioner Family
DX: Z13.220 Encounter for screening for lipoid disorders (principal); Z13.1 Encounter for screening for diabetes mellitus; Z12.5 Encounter for screening for malignant neoplasm of prostate
CPT/HCPCS: 36415; 80053; 80061; 83036

== ENCOUNTER → 2025-03-22 | Outpatient (CLI) | payer OTHER, SELFPAY ==
--- NOTE | 2025-03-22 12:08 | ECHOD_ITS ---
Reason For Study Reason For Study: PALPITATIONS Procedure This was a 2D Doppler, Color Flow transthoracic echocardiogram. The patient is in sinus rhythm. Exam performed in department. Left Ventricle Normal size and thickness. The left ventricular ejection fraction is 65 %. No evidence for diastolic dysfunction. Right Ventricle Normal right ventricle. Atria The left and right atria are normal. Mitral Valve Trivial mitral valve insufficiency. Tricuspid Valve Trivial tricuspid valve insufficiency. Normal pulmonary artery pressure. Aortic Valve Trisinus/trileaflet aortic valve. Pulmonic Valve The pulmonic valve is not well visualized. Great Vessels Normal sized aortic root. Pericardium/Pleural No pericardial effusion. MMode/2D Measurements & Calculations LVIDd: 5.1 cm IVSd: 1.0 cm LVOT diam: 2.2 cm LVIDs: 3.0 cm LVPWd: 1.0 cm LVOT area: 3.7 cm2 RVDd: 3.9 cm FS: 41.4 % Ao root diam: 3.1 cm asc Aorta Diam: 3.2 cm LAV(MOD- bp): 62.7 ml LAV(MOD- bp) Indexed: 28.0 ml/m2 LAV(MOD- sp2): 68.6 ml LAV(MOD- sp4): 52.7 ml LVAd ap4: 29.7 cm2 LVAd ap2: 30.0 cm2 EDV(MOD- bp): 90.3 ml LVLd ap4: 8.4 cm LVLd ap2: 8.2 cm ESV(MOD- bp): 35.5 ml EDV(MOD-sp4): 85.9 ml EDV(MOD-sp2): 91.9 ml EF(MOD- bp): 60.7 % EDV(sp4-el): 89.1 ml EDV(sp2-el): 93.5 ml LVAs ap4: 16.2 cm2 LVAs ap2: 17.1 cm2 LVLs ap4: 6.8 cm LVLs ap2: 6.8 cm ESV(MOD-sp4): 32.9 ml ESV(MOD-sp2): 37.7 ml ESV(sp4-el): 32.6 ml ESV(sp2-el): 36.5 ml EF(MOD-sp4): 61.7 % EF(MOD-sp2): 58.9 % EF(sp4-el): 63.4 % SV(MOD-sp4): 53.0 ml SV(MOD-sp2): 54.2 ml SV(sp4- el): 56.4 ml SI(MOD-sp4): 23.7 ml/m2 SI(MOD-sp2): 24.2 ml/m2 Ao sinus diam: 3.[address] Junction: 2.7 cm LA A4 area: 19.9 cm2 LA dimension(2D): 4.3 cm TAPSE: 1.7 cm RA A4 area: 12.6 cm2 Time Measurements MV dec time: 0.36 sec Doppler Measurements & Calculations MV E max henry: 59.0 cm/sec Lat Peak E' Henry: 14.4 cm/sec Med Peak E' Henry: 9.1 cm/sec MV A max henry: 73.7 cm/sec E/E' lat: 4.1 E/E' med: 6.5 MV E/A: 0.80 MV dec slope: 163.3 cm/sec2 Ao V2 max: 171.8 cm/sec LV V1 max: 146.3 cm/sec Ao max P.8 mmHg LV V1 max P.6 mmHg Ao V2 mean: 112.8 cm/sec LV V1 mean P.8 mmHg Ao mean P.9 mmHg LV V1 mean: 103.1 cm/sec Ao V2 VTI: 34.8 cm LV V1 VTI: 28.0 cm AV (velocity ratio): 0.80 EHSAN(I,D): 2.9 cm2 EHSAN(V,D): 3.1 cm2 SV(LVOT): 102.1 ml PA V2 max: 119.1 cm/sec TR max henry: 238.3 cm/sec TR max P.7 mmHg ECHO/Echo Complete Interpretation Summary The left ventricular ejection fraction is 65 %. No evidence for diastolic dysfunction. Ordering Physician: Brady Lares Referring Physician: Brady Lares MD Performed By: Barbara Doyle RDCS
--- NOTE | 2025-03-23 12:28 | STRESSREP_ITS ---
Stress Test Report Date: 03/22/2025 Procedure: Exercise tolerance test Indications: Bradycardia Consent: Per the patient Procedure: The patient exercised on a Jacob protocol for 6 minutes and 52 seconds achieving a peak heart rate of 160 bpm (101% predicted maximal heart rate) with a peak blood pressure 222/78 mmHg and a peak MET capacity of approximately 9.6 MET's. The baseline ECG demonstrated sinus rhythm. The peak exercise ECG showed sinus tachycardia with no ischemic changes. No significant cardiac dysrhythmias noted. Excellent chronotropic response to exercise. The functional capacity was considered very good for age. The patient had no complaints of chest discomfort during exercise or recovery. The examination was discontinued secondary to target heart rate being achieved and leg discomfort. Impression: 1. Technically adequate (percent predicted maximal heart rate greater than 85%) exercise tolerance test 2. Peak exercise ECG with no ischemic changes. Good chronotropic response to exercise 3. Hypertensive response to exercise This note was generated with [employer] software. It may contain incorrect words, spelling, and punctuation that were not noted in checking the note before signing.
== END | disposition home or self-care (01) ==
LOC: CVS 12:06
PROVIDERS: PCP Family Medicine; Referring Provider Internal Medicine Cardiovascular Disease; Visit Provider Internal Medicine Cardiovascular Disease
DX: R00.1 Bradycardia, unspecified (principal); R94.31 Abnormal electrocardiogram [ECG] [EKG]; I10 Essential (primary) hypertension; I49.1 Atrial premature depolarization; G47.33 Obstructive sleep apnea (adult) (pediatric)
CPT/HCPCS: 93017; 93306